=== PATIENT | male | born 1935 | race Caucasian/White ===

== ENCOUNTER 2017-04-12 16:52 | Inpatient (IN) | payer MEDICARE ==
[~2017-04-12] VITALS: Ht 182.8 cm; Wt 79.9 kg
[2017-04-12] VITALS (9 sets, daily range): BP systolic 75–125; BP diastolic 35–56
--- NOTE | ~2017-04-12 | O ---
[place], [place] OPERATIVE NOTE NAME: [facility] [id number] UNIT #: [id number] ROOM: 509 DOCTOR: BONILLA ISAAC MD BIRTHDATE: [birth year] DOS: GASTROENDOSCOPIC REPORT HISTORY OF PRESENT ILLNESS: An 81-year-old who presented with chief complaint of guaiac positivity black tarry stool, undergoing investigation. The patient has been on aspirin by history. PROCEDURE: Today's procedure part of investigation is panendoscopy plus biopsy and photographic series. PREMEDICATION: Versed and Diprivan. SCOPE: Olympus forward-viewing gastroscope Q10 video. REPORT: After putting the patient in the left lateral position and after application of lubricant to the scope, the scope was introduced. Thereafter, under direct visualization, I advanced through the length of the esophagus without difficulty. Esophagus cervicothoracic distally carefully examined. Diffuse esophageal ulceration in the mid esophagus particularly appreciated, photograph was obtained. Hiatal hernia was noticed. Gastric pouch was entered. Gastritis seen, mild degree. Duodenal bulb, second and third part within normal limits. Biopsy from esophageal ulcer was obtained. The patient extubated, tolerated procedure well. IMPRESSION: Diffuse esophageal ulcers as a cause of guaiac positivity. PLAN: Sucralfate 2 grams slurry to be sipped by the patient every 6 hours. Increase Protonix 40 mg IV b.i.d. Follow up CBC, clinical reassessment, diet soft. BONILLA ISAAC MD CM:OPRECORD:OPERATIVE NOTE 1644 04 BONILLA ISAAC MD 04/14/171903 interface
--- NOTE | ~2017-04-12 | CON ---
[place], [place] REPORT OF CONSULTATION NAME: THI GRIDER Sabrina UNIT #: [id number] ROOM: 509 DOCTOR: BONILLA ISAAC MD BIRTHDATE: [birth year] DOS: 04/14/2017 HISTORY OF PRESENT ILLNESS: An 81-year-old patient who presented with black tarry stool, has been concerned and admitted on . His white blood cell was 11, H and H of 14 and 44. His blood work this morning H and H still 12 and 38. His blood cultures were negative. Urine culture has been greater than 100,000 heavy gram-negative cocci. He is guaiac positive. PAST MEDICAL HISTORY: Associated chronic kidney disease, chronic obstructive pulmonary disease, hypertension, diabetes, hyperlipidemia, BPH. PAST SURGICAL HISTORY: Right inguinal hernia. SOCIAL HISTORY: Nonsmoker, nonalcohol consumer. FAMILY HISTORY: Noncontributory. ALLERGIES: To no known medications. MEDICATIONS: List has been reviewed. REVIEW OF SYSTEMS: HEENT: Denies double vision, blurred vision. RESPIRATORY: Denies shortness of breath. CARDIOVASCULAR: Denies chest pain. DIGESTIVE SYSTEM: No hematemesis; however, black tarry stools, repeatedly complaining of. PHYSICAL EXAMINATION: VITAL SIGNS: Stable. HEENT: Head normocephalic, nontraumatic. Mouth and buccal mucosa benign. NECK: Supple, no thyromegaly, no cervical lymphadenopathy. CHEST: Symmetric anatomy, equal expansion. No wheeze, no rhonchi. HEART: Normal sinus rhythm, no gallop, no murmur. ABDOMEN: Soft. No hepato-organomegaly. Bowel sounds present. No pulsatile mass. No rebound tenderness. EXTREMITIES: No cyanosis, no pedal edema. NEUROLOGIC: Alert, oriented to time, place, person. IMPRESSION: Black tarry stool, history of chronic obstructive pulmonary disease, hyperlipidemia, hypertension, diabetes mellitus, benign obstructive hypertrophy, all has been recognized. PLAN AND DISCUSSION: We are going to proceed with panendoscopic assessment in concern about his black tarry stool. His urinary tract infection greater than 100,000 gram-positive cocci is being addressed by primary team. [place], [place] REPORT OF CONSULTATION NAME: THI GRIDER UNIT #: [id number] ROOM: 509 DOCTOR: MARLIN JARAMILLO,BONILLA BIRTHDATE: [birth year] BONILLA ISAAC MD CM:CONSTR:REPORT OF CONSULTATION 1632 04/15/17 0114 interface
--- NOTE | ~2017-04-12 | PR ---
[place], [place] PROGRESS NOTE NAME: THI GRIDER [facility] #: [id number] UNIT #: [id number] ROOM: 509 DOCTOR: DAY RICHARDSON MD BIRTHDATE: [birth year] DOS: 04/14/2017 SUBJECTIVE: The patient in his room, walking. Denies any specific cardiac complaints. No chest pain. No chest pressure. No heaviness. No tightness. The patient was found to have black tarry stools. Denies any abdominal pain. No nausea. No vomiting. No fever. No chills. Maintains good appetite. No weight loss. OBJECTIVE: VITAL SIGNS: Blood pressure 157/67, heart rate 61, respiratory rate of 14, temperature 97.3. NECK: There is good upstroke. No bruit. HEART: S1, S2. No rub. LUNGS: Clear to auscultation. EXTREMITIES: Lower extremities: There is no edema. LABORATORY DATA: White count 7.1, hemoglobin 12.0. Potassium 3.7, creatinine 0.8, GFR more than 60%, glucose 225. Total cholesterol 167, LDL 58, HDL 50. Troponin is normal at 0.023 and 0.02 and 0.015. ASSESSMENT AND PLAN: Initial presentation with questionable episode of syncope, even though patient adamantly denies such episode. There is an element of dementia and confusion, which we take in consideration evaluating overall patient's history. At this stage, going by patient's vital signs and rhythm strips, there appears to be no evidence of any significant cardiac events. The patient's tarry stool has been addressed by Dr. Walter and apparently they will proceed with EGD and colonoscopy and patient is cleared for this procedure from the Cardiology point of view. There was no evidence of any atrial fibrillation. The patient can be discharged home from our end and can be seen as an outpatient within 2-3 months. Any change in symptoms, then a long-term monitoring is device such as a CardioNet. DAY RICHARDSON MD CM:PNTRANS 2 15 DAY RICHARDSON MD 04/16/171915 interface
--- NOTE | ~2017-04-12 | CON ---
[place], [place] REPORT OF CONSULTATION NAME: [facility]ID[facility] [id number] UNIT #: [id number] ROOM: 509 DOCTOR: DYLAN JARAMILLODAY BIRTHDATE: [birth year] DOS: 04/13/2017 REQUESTING PHYSICIAN: Dr. Valle. REASON FOR CONSULTATION: New EKG changes. ASSESSMENT: 1. Current presentation with dizziness and near syncope (the patient adamantly denies passing out). 2. EKG read as in atrial fibrillation consistent with normal sinus rhythm. 3. Abnormal baseline EKG consistent with poor R-wave progression and nonspecific ST-T changes. 4. Chronic kidney disease stage III. 5. Chronic obstructive pulmonary disease. 6. Diabetes. 7. Hypertension. 8. Hyperlipidemia. 9. No reported cardiac complaint. PLAN: 1. Cycle cardiac enzymes. 2. Check echocardiogram results. 3. Enteric coated aspirin. 4. There is no room for beta hailey in view of the patient's baseline bradycardia. 5. I will hold on further cardiac testing in view of patient's elderly and frail status (dementia). 6. Stop Cardura. 7. Consider holding NIA inhibitor at this time with Nephrology consult. HISTORY OF PRESENT ILLNESS: The patient is a pleasant 81-year-old gentleman unknown to our practice, was referred for evaluation of what looks like an abnormal EKG. The initial reading consistent with atrial fibrillation, but patient has been in normal sinus rhythm. Abnormal baseline EKG changes could be chronic. The patient apparently presented to the hospital after getting out of [employer] and getting dizzy and was thought to be like he passed out even though patient completely denies. No reported chest pain, chest pressure, heaviness or tightness. Never had any jaw pain, left arm pain, no back pain. The patient is active, but there is a problem with what looks like an element of dementia, which casts doubt about all his history. Still the patient apparently was found out in passing out prior to his brother bringing him to the hospital. There is no fever, no chills, no night sweats, maintained good appetite, no weight loss. No symptomatic palpitation or any associated dizziness, lightheadedness or near syncope. PAST MEDICAL HISTORY: As detailed in my assessment. SOCIAL HISTORY: The patient denies any current tobacco, alcohol or illicit drug abuse. [place], [place] REPORT OF CONSULTATION NAME: [facility] GRIDER [facility] [id number] UNIT #: [id number] ROOM: 509 DOCTOR: DAY RICHARDSON MD BIRTHDATE: [birth year] FAMILY HISTORY: Not applicable in view of the patient's age. CURRENT MEDICATIONS: Lipitor, vitamin D3, Cardura, insulin, lisinopril, triamcinolone, vitamin E. ALLERGIES: The patient has no known drug allergies. REVIEW OF SYSTEMS: The patient denies any current headache, diplopia, or blurry vision. No fever, no chills, no night sweats. No abdominal pain, no bright red blood per rectum or tarry stools. The patient admits to joint pain, but no muscular pain. No anxiety, no depression. No polyuria, no polydipsia. No skin rash. Review of all other systems has been negative. PHYSICAL EXAMINATION: GENERAL: The patient is alert and oriented x3, quite pleasant. VITAL SIGNS: Blood pressure 127/54, heart rate 61, respiratory rate of 14, temperature 98.9. Extraocular muscles intact. Pupils equal, round, reactive to light. Conjunctivae, no pallor. Throat, no petechiae. NECK: Good upstroke. Unable to appreciate any bruit, no lymphadenopathy, no thyromegaly. HEART: S1, S2 with faint holosystolic murmur in the left upper sternal border. No rub, no sternal heave. CHEST AND BACK: No deformities. LUNGS: Clear to auscultation. Good air movement. No wheezing, rales. ABDOMEN: Soft, nontender, present bowel sounds, no masses, no bruits. LOWER EXTREMITIES: There is no edema with faint distal pulses. NEUROLOGIC: Grossly nonfocal. SKIN: No significant rash. LABORATORY DATA: White count 7.1, hemoglobin 12.0. Potassium 3.6, current creatinine 1.4, BUN 35, calcium 7.9, troponin 0.023 and 0.02. DAY RICHARDSON MD CM:CONSTR:REPORT OF CONSULTATION 1745 04/14/17 0150 interface
[~2017-04-12 16:52] MED LIST: 'zithromax250 MG PO; ADVAIR 250/501 EA INH; ALBUTEROL0.09 MG/A1 INH; ALBUTEROL0.09 MG/A2 INH; CARDURA1 M1 PO; DOXAZOSIN MESYLA1 MG PO; EYE DROPS; HUMALOG100 U/ML SC; HUMULIN N100 U/ML SC; HUMULIN R100 U/ML SC; HYDR25T PO; HYDROCODONE BIT1 T11 PO; INNOPRAN PO; INSULIN SYRING1 EAC1 MC; LANTUS100 U/ML SC; LIDOCREAM5 GM TP; LIPITOR20 MG PO; LIPITOR40 MG PO; LISINOPRIL20 MG PO; MUCINEX ER600 MG PO; MYCOLOG CREAM 115 GM T; NOVOLIN N100 U/ML SC; NOVOLIN R100 U/ML SC; NOVOLIN R100 U/ML SQ; OMNICEF300 MG PO; PREDNICOT20 MG PO; PREDNISONE10 MG PO; TAMSULOSIN HCL0.4 MG PO; TEST STRIPS1 EACH MC; VITAMIN D32000 I1 PO; VITAMIN D32000 UNI1 PO; VITAMIN E400 UNIT PO; Ventolin 02.5 MG/3 M NEB; ZESTORETIC PO; ZITHROMAX500 MG PO; [UNRECOGNIZED DRUG - OTHER] PO; [UNRECOGNIZED DRUG - SUPPLY] DEVI
[2017-04-12 17:44] LABS: BASO % 0.4 % (0.0-1.0); EOS % 0.3 % (1.0-4.0); HEMATOCRIT 44.4 % (42.0-52.0); HEMOGLOBIN 14.9 g/dl (14.0-18.0); IG # 0.1 10*3/uL (0.0-0.1); LYMPH # 1.2 10*3/uL (1.3-4.4); LYMPH % 10.4 % (27.0-41.0); MEAN CELL VOLUME 90.6 fl (80.0-94.0); MEAN CORPUSCULAR HGB 30.4 pg (27.0-31.0); MEAN CORPUSCULAR HGB CONC 33.6 g/dl (33.0-37.0); MEAN PLATELET VOLUME 10.7 fl (9.6-12.3); MONO # 0.9 10*3/uL (0.1-1.0); MONO % 7.7 % (3.0-9.0); NEUT # 9.1 10*3/uL (2.3-7.9); NEUT % 80.4 % (47.0-73.0); PLATELET COUNT AUTOMATED 231 10*3/uL (130-400); RED CELL DISTRI WIDTH 12.6 % (0-14.5); WHITE BLOOD COUNT 11.2 10*3/uL (4.8-10.8)
[2017-04-12 18:10] LABS: ALBUMIN 3.3 gm/dl (3.1-4.5); ALKALINE PHOSPHATASE 174 U/L (45-117); BILIRUBIN, TOTAL 0.7 mg/dl (0.2-1.0); BUN 41 mg/dl (7-24); C-REACTIVE PROTEIN 2.66 MG/DL (0-0.3); CARBON DIOXIDE 23 mmol/L (21-32); CHLORIDE 92 mmol/L (98-107); CKMB 2.2 ng/ml (0.5-3.6); CPK 92 U/L (39-308); EST GLOM FILT AFRICAN AMERICAN 27 ml/min; GLUCOSE 173 mg/dL (65-99); MAGNESIUM 2.5 mg/dL (1.5-2.1); POTASSIUM 3.8 mmol/L (3.5-5.1); SGOT/AST 15 IU/L (3-35); SGPT/ALT 27 U/L (12-78); SODIUM 137 mmol/L (136-145); TOTAL PROTEIN 7.2 gm/dL (6.4-8.2)
[2017-04-12 18:12] LABS: TROPONIN I < 0.015 ng/ml (<0.045)
[2017-04-12 19:37] LABS: BILIRUBIN NEGATIVE (NEGATIVE); BLOOD TRACE-INTACT (NEGATIVE); CLARITY CLEAR (CLEAR); COLOR YELLOW (YELLOW); GLUCOSE 3+ (NEGATIVE); KETONE 1+ (NEGATIVE); LEUKO ESTERASE TRACE (NEGATIVE); NITRITE NEGATIVE (NEGATIVE); PROTEIN NEGATIVE (NEGATIVE); SPECIFIC GRAVITY <= 1.005 (1.005-1.030); UROBILINOGEN 0.2 E.U./dl (0.2-1.0)
[2017-04-12 19:38] LABS: LA>2 REFLEX 2 HR DRAW NOW
[2017-04-12 19:52] LABS: BACTERIA TRACE; RBC 0-2 rbc/hpf (0-2); URINE REFLEX COMMENT YES (NO)
[2017-04-12 20:13] LABS: LA>2 RFLX FOLLOW UP AT 2 HRS 4.1 mmol/L (0.4-2.0)
[2017-04-12 22:00] LABS: LA>2 REFLEX 4 HR DRAW NOW
[2017-04-13] VITALS: BP 122/45
[2017-04-13 04:00] VITALS: BP 109/42
[2017-04-13 05:59] LABS: BASO % 0.1 % (0.0-1.0); EOS # 0.1 10*3/uL (0.0-0.4); LYMPH # 1.2 10*3/uL (1.3-4.4); LYMPH % 16.9 % (27.0-41.0); MEAN CELL VOLUME 90.2 fl (80.0-94.0); MEAN CORPUSCULAR HGB 30.8 pg (27.0-31.0); MEAN CORPUSCULAR HGB CONC 34.2 g/dl (33.0-37.0); MEAN PLATELET VOLUME 10.3 fl (9.6-12.3); MONO # 0.6 10*3/uL (0.1-1.0); MONO % 7.8 % (3.0-9.0); NEUT # 5.2 10*3/uL (2.3-7.9); NEUT % 73.8 % (47.0-73.0); RED BLOOD COUNT 3.89 10*6/uL (4.50-5.90); RED CELL DISTRI WIDTH 12.6 % (0-14.5); WHITE BLOOD COUNT 7.1 10*3/uL (4.8-10.8)
[2017-04-13 06:12] LABS: HEMATOCRIT 35.1 % (42.0-52.0); PLATELET COUNT AUTOMATED 157 10*3/uL (130-400)
[2017-04-13 06:26] LABS: POTASSIUM 3.6 mmol/L (3.5-5.1)
[2017-04-13 08:00] VITALS: BP 114/53
[2017-04-13 09:20] LABS: BILIRUBIN NEGATIVE (NEGATIVE); BLOOD TRACE-INTACT (NEGATIVE); CLARITY CLEAR (CLEAR); COLOR YELLOW (YELLOW); GLUCOSE 3+ (NEGATIVE); KETONE NEGATIVE (NEGATIVE); LEUKO ESTERASE NEGATIVE (NEGATIVE); NITRITE NEGATIVE (NEGATIVE); PH 5.5 (5.0-9.0); PROTEIN TRACE (NEGATIVE); UROBILINOGEN 0.2 E.U./dl (0.2-1.0)
[2017-04-13 09:25] LABS: BACTERIA TRACE
[2017-04-13 09:26] LABS: URINE REFLEX COMMENT NO (NO)
[2017-04-13 12:00] VITALS: BP 123/56
[2017-04-13 16:00] VITALS: BP 127/54
[2017-04-13 20:00] VITALS: BP 135/57
[2017-04-14] VITALS (8 sets, daily range): BP systolic 123–150; BP diastolic 40–65
[2017-04-14 07:35] LABS: BASO % 0.4 % (0.0-1.0); EOS # 0.1 10*3/uL (0.0-0.4); HEMATOCRIT 38.4 % (42.0-52.0); HEMOGLOBIN 12.7 g/dl (14.0-18.0); LYMPH # 1.1 10*3/uL (1.3-4.4); LYMPH % 20.1 % (27.0-41.0); MEAN CORPUSCULAR HGB 30.8 pg (27.0-31.0); MEAN CORPUSCULAR HGB CONC 33.1 g/dl (33.0-37.0); MONO # 0.4 10*3/uL (0.1-1.0); MONO % 6.5 % (3.0-9.0); NEUT # 3.8 10*3/uL (2.3-7.9); NEUT % 70.6 % (47.0-73.0); PLATELET COUNT AUTOMATED 145 10*3/uL (130-400); RED BLOOD COUNT 4.13 10*6/uL (4.50-5.90); RED CELL DISTRI WIDTH 12.8 % (0-14.5); WHITE BLOOD COUNT 5.4 10*3/uL (4.8-10.8)
[2017-04-14 07:48] LABS: CHOLESTEROL 167 mg/dL (<200); HDL CHOLESTEROL 50 mg/dl (40-60); LDL CHOLESTEROL 58 mg/dL (9-159); TRIGLYCERIDES 297 mg/dl (<150); VLDL CHOLESTEROL 59 mg/dL (6-40)
[2017-04-14 08:04] LABS: CARBON DIOXIDE 24 mmol/L (21-32); CHLORIDE 106 mmol/L (98-107); EST GLOM FILT AFRICAN AMERICAN > 60 ml/min; GLUCOSE 225 mg/dL (65-99); POTASSIUM 3.7 mmol/L (3.5-5.1); SODIUM 141 mmol/L (136-145)
[2017-04-14 08:08] LABS: BUN 22 mg/dl (7-24)
[2017-04-15] VITALS: BP 126/61
[2017-04-15 06:46] LABS: BASO % 0.4 % (0.0-1.0); EOS # 0.1 10*3/uL (0.0-0.4); EOS % 2.5 % (1.0-4.0); HEMATOCRIT 40.9 % (42.0-52.0); HEMOGLOBIN 13.6 g/dl (14.0-18.0); LYMPH # 1.3 10*3/uL (1.3-4.4); LYMPH % 24.1 % (27.0-41.0); MEAN CELL VOLUME 92.3 fl (80.0-94.0); MEAN CORPUSCULAR HGB 30.7 pg (27.0-31.0); MEAN CORPUSCULAR HGB CONC 33.3 g/dl (33.0-37.0); MEAN PLATELET VOLUME 10.8 fl (9.6-12.3); MONO # 0.4 10*3/uL (0.1-1.0); NEUT # 3.4 10*3/uL (2.3-7.9); NEUT % 64.4 % (47.0-73.0); PLATELET COUNT AUTOMATED 160 10*3/uL (130-400); RED BLOOD COUNT 4.43 10*6/uL (4.50-5.90); RED CELL DISTRI WIDTH 12.7 % (0-14.5); WHITE BLOOD COUNT 5.3 10*3/uL (4.8-10.8)
[2017-04-15 06:57] LABS: BUN 18 mg/dl (7-24); CARBON DIOXIDE 21 mmol/L (21-32); CHLORIDE 107 mmol/L (98-107); EST GLOM FILT AFRICAN AMERICAN > 60 ml/min; GLUCOSE 246 mg/dL (65-99); POTASSIUM 3.9 mmol/L (3.5-5.1); SODIUM 141 mmol/L (136-145)
[2017-04-15 08:00] VITALS: BP 157/67
[2017-04-15 12:00] VITALS: BP 140/50
[2017-04-15] MEDS ORDERED: Carafate1 GM/10 ML PO (15:25)
[2017-04-15 16:00] VITALS: BP 120/52
[2017-04-15 20:00] VITALS: BP 126/53
[2017-04-16] VITALS: BP 138/58
[2017-04-16 08:00] VITALS: BP 177/56
[2017-04-16] MEDS ORDERED: PROTONIX40 MG PO (09:09)
[2017-04-16 12:00] VITALS: BP 149/52
[2017-04-16] MEDS ORDERED: DOXYCYCLINE100 M3 PO (12:47)
== END 2017-04-16 13:02 | disposition home or self-care (01) | DRG 380 ==
LOC: ED 16:52 → ICCU 18:39 → EDHOLD 18:39 → ICCU 19:43 → 5E 04-13 18:04
PROVIDERS: Emergency Medicine; Hospitalist; Internal Medicine; Internal Medicine Cardiovascular Disease
PROC: 0DB58ZX Excision of Esophagus, Via Natural or Artificial Opening Endoscopic, Diagnostic (ICD-10-PCS; principal; 2017-04-14)
DX: K22.11 Ulcer of esophagus with bleeding (principal); N17.0 Acute kidney failure with tubular necrosis; G93.41 Metabolic encephalopathy; I95.9 Hypotension, unspecified; E87.2 Acidosis; E11.22 Type 2 diabetes mellitus with diabetic chronic kidney disease; E11.65 Type 2 diabetes mellitus with hyperglycemia; R00.1 Bradycardia, unspecified; I48.91 Unspecified atrial fibrillation; F03.90 Unspecified dementia, unspecified severity, without behavioral disturbance, psychotic disturbance, mood disturbance, and anxiety; E86.0 Dehydration; R82.4 Acetonuria; J44.9 Chronic obstructive pulmonary disease, unspecified; E78.5 Hyperlipidemia, unspecified; N40.0 Benign prostatic hyperplasia without lower urinary tract symptoms; K29.70 Gastritis, unspecified, without bleeding; I12.9 Hypertensive chronic kidney disease with stage 1 through stage 4 chronic kidney disease, or unspecified chronic kidney disease; N18.3 Chronic kidney disease, stage 3 (moderate); K20.9 Esophagitis, unspecified; Z84.89 Family history of other specified conditions; Z79.4 Long term (current) use of insulin; Z79.899 Other long term (current) drug therapy

== ENCOUNTER 2017-04-24 13:43 | Emergency (ER) | payer MEDICARE ==
[~2017-04-24] VITALS: Ht 182.8 cm; Wt 86.2 kg
[~2017-04-24 13:43] MED LIST changes: +Carafate1 GM/10 ML PO; +DOXYCYCLINE100 M3 PO; +PROTONIX40 MG PO
[2017-04-24 14:57] LABS: BASO % 0.2 % (0.0-1.0); EOS % 0.4 % (1.0-4.0); HEMOGLOBIN 11.6 g/dl (14.0-18.0); LYMPH # 0.6 10*3/uL (1.3-4.4); LYMPH % 6.5 % (27.0-41.0); MEAN CELL VOLUME 92.6 fl (80.0-94.0); MEAN CORPUSCULAR HGB 30.7 pg (27.0-31.0); MEAN CORPUSCULAR HGB CONC 33.1 g/dl (33.0-37.0); MEAN PLATELET VOLUME 10.3 fl (9.6-12.3); MONO # 0.7 10*3/uL (0.1-1.0); NEUT # 7.1 10*3/uL (2.3-7.9); NEUT % 84.5 % (47.0-73.0); PLATELET COUNT AUTOMATED 214 10*3/uL (130-400); RED BLOOD COUNT 3.78 10*6/uL (4.50-5.90); RED CELL DISTRI WIDTH 13.4 % (0-14.5); WHITE BLOOD COUNT 8.4 10*3/uL (4.8-10.8)
[2017-04-24 15:11] LABS: BUN 22 mg/dl (7-24); CARBON DIOXIDE 28 mmol/L (21-32); CHLORIDE 104 mmol/L (98-107); EST GLOM FILT AFRICAN AMERICAN > 60 ml/min; GLUCOSE 132 mg/dL (65-99); POTASSIUM 3.3 mmol/L (3.5-5.1); SODIUM 141 mmol/L (136-145)
[2017-04-24 16:53] LABS: LA>2 REFLEX 2 HR DRAW NOW
[2017-04-24] MEDS ORDERED: BACTRIM DS 8001 TA1 PO (16:57)
[2017-04-24] MEDS ORDERED: KEFLEX500 M1 PO (16:57)
== END 2017-04-24 17:13 | disposition left against medical advice (07) ==
LOC: ED 13:43
PROVIDERS: Emergency Medicine
DX: L03.116 Cellulitis of left lower limb (principal); I12.9 Hypertensive chronic kidney disease with stage 1 through stage 4 chronic kidney disease, or unspecified chronic kidney disease; E11.22 Type 2 diabetes mellitus with diabetic chronic kidney disease; N18.3 Chronic kidney disease, stage 3 (moderate); E11.621 Type 2 diabetes mellitus with foot ulcer; E78.5 Hyperlipidemia, unspecified; J44.9 Chronic obstructive pulmonary disease, unspecified; F03.90 Unspecified dementia, unspecified severity, without behavioral disturbance, psychotic disturbance, mood disturbance, and anxiety; Z79.899 Other long term (current) drug therapy; Z79.4 Long term (current) use of insulin

== ENCOUNTER 2017-07-04 14:55 | Emergency (ER) | payer MEDICARE ==
[~2017-07-04] VITALS: Wt 77.1 kg
[~2017-07-04 14:55] MED LIST changes: +BACTRIM DS 8001 TA1 PO; +KEFLEX500 M1 PO
[2017-07-04 15:29] LABS: BASO % 0.3 % (0.0-1.0); EOS % 0.4 % (1.0-4.0); HEMATOCRIT 37.2 % (42.0-52.0); HEMOGLOBIN 11.9 g/dl (14.0-18.0); LYMPH # 0.6 10*3/uL (1.3-4.4); LYMPH % 8.7 % (27.0-41.0); MEAN CELL VOLUME 93.7 fl (80.0-94.0); MEAN PLATELET VOLUME 10.4 fl (9.6-12.3); MONO # 0.4 10*3/uL (0.1-1.0); MONO % 5.3 % (3.0-9.0); NEUT % 84.9 % (47.0-73.0); PLATELET COUNT AUTOMATED 194 10*3/uL (130-400); RED BLOOD COUNT 3.97 10*6/uL (4.50-5.90); RED CELL DISTRI WIDTH 13.4 % (0-14.5); WHITE BLOOD COUNT 7.1 10*3/uL (4.8-10.8)
[2017-07-04 15:40] LABS: BILIRUBIN NEGATIVE (NEGATIVE); BLOOD NEGATIVE (NEGATIVE); CLARITY SL CLOUDY (CLEAR); COLOR YELLOW (YELLOW); GLUCOSE NEGATIVE (NEGATIVE); KETONE NEGATIVE (NEGATIVE); LEUKO ESTERASE TRACE (NEGATIVE); NITRITE NEGATIVE (NEGATIVE); SPECIFIC GRAVITY 1.025 (1.005-1.030); UROBILINOGEN 0.2 E.U./dl (0.2-1.0)
[2017-07-04 15:58] LABS: BACTERIA 2+; RBC 0-2 rbc/hpf (0-2)
[2017-07-04 16:03] LABS: ALKALINE PHOSPHATASE 129 U/L (45-117); BUN 20 mg/dl (7-24); CHLORIDE 107 mmol/L (98-107); CREATININE 0.95 mg/dL (0.70-1.30); POTASSIUM 3.4 mmol/L (3.5-5.1); SGOT/AST 12 IU/L (3-35); SGPT/ALT 18 U/L (12-78); SODIUM 143 mmol/L (136-145); TOTAL PROTEIN 6.3 gm/dL (6.4-8.2)
== END 2017-07-04 17:09 | disposition left against medical advice (07) ==
LOC: ED 14:55
PROVIDERS: Family Medicine Adult Medicine
DX: E16.2 Hypoglycemia, unspecified (principal); I12.9 Hypertensive chronic kidney disease with stage 1 through stage 4 chronic kidney disease, or unspecified chronic kidney disease; E11.22 Type 2 diabetes mellitus with diabetic chronic kidney disease; N18.3 Chronic kidney disease, stage 3 (moderate); J44.9 Chronic obstructive pulmonary disease, unspecified; E78.5 Hyperlipidemia, unspecified; Z79.899 Other long term (current) drug therapy

== ENCOUNTER 2017-07-19 10:57 | Inpatient (IN) | payer MEDICARE ==
[~2017-07-19] VITALS: Ht 182.9 cm; Wt 86.3 kg
[2017-07-19 11:16] VITALS: BP 158/74
[2017-07-19 11:43] LABS: BASO % 0.4 % (0.0-1.0); EOS % 0.5 % (1.0-4.0); HEMATOCRIT 42.8 % (42.0-52.0); HEMOGLOBIN 13.8 g/dl (14.0-18.0); LYMPH # 1.1 10*3/uL (1.3-4.4); LYMPH % 14.6 % (27.0-41.0); MEAN CELL VOLUME 93.9 fl (80.0-94.0); MEAN CORPUSCULAR HGB 30.3 pg (27.0-31.0); MEAN CORPUSCULAR HGB CONC 32.2 g/dl (33.0-37.0); MEAN PLATELET VOLUME 10.2 fl (9.6-12.3); MONO # 0.5 10*3/uL (0.1-1.0); MONO % 5.9 % (3.0-9.0); NEUT % 78.1 % (47.0-73.0); PLATELET COUNT AUTOMATED 209 10*3/uL (130-400); RED BLOOD COUNT 4.56 10*6/uL (4.50-5.90); RED CELL DISTRI WIDTH 13.2 % (0-14.5); WHITE BLOOD COUNT 7.7 10*3/uL (4.8-10.8)
[2017-07-19 11:52] LABS: ACT PARTIAL THROMBO TIME 23.9 SECONDS (20.8-31.5)
[2017-07-19 12:00] VITALS: BP 139/56
[2017-07-19 12:00] LABS: ALBUMIN 3.3 gm/dl (3.1-4.5); ALKALINE PHOSPHATASE 143 U/L (45-117); BUN 26 mg/dl (7-24); CHLORIDE 98 mmol/L (98-107); CKMB 1.4 ng/ml (0.5-3.6); CPK 81 U/L (39-308); CREATININE 1.37 mg/dL (0.70-1.30); LIPASE 109 U/L (73-393); MAGNESIUM 1.8 mg/dL (1.5-2.1); POTASSIUM 4.9 mmol/L (3.5-5.1); SGOT/AST 13 IU/L (3-35); SGPT/ALT 16 U/L (12-78); SODIUM 134 mmol/L (136-145); TOTAL PROTEIN 6.7 gm/dL (6.4-8.2)
[2017-07-19 12:05] LABS: TROPONIN I < 0.015 ng/ml (<0.045)
[2017-07-19 12:11] LABS: BILIRUBIN NEGATIVE (NEGATIVE); BLOOD 3+ (NEGATIVE); CLARITY CLEAR (CLEAR); COLOR YELLOW (YELLOW); GLUCOSE 3+ (NEGATIVE); KETONE 2+ (NEGATIVE); LEUKO ESTERASE NEGATIVE (NEGATIVE); NITRITE NEGATIVE (NEGATIVE); SPECIFIC GRAVITY <= 1.005 (1.005-1.030); UROBILINOGEN 0.2 E.U./dl (0.2-1.0)
[2017-07-19 12:17] LABS: RBC 31-40 rbc/hpf (0-2)
[2017-07-19 14:15] VITALS: BP 137/97; BP 138/96
--- NOTE | 2017-07-19 14:15 | NUR ---
A 81, admitted to , under the services of SCHUYLER Lock DO with a diagnosis of cellulitis. Chief complaint is blood in urine. Patient arrived via stretcher from ER. Monitor applied. Initial assessment completed. Vital signs taken and recorded. SCHUYLER LOCK DO notified of admission to the unit. Orders received. See assessment for past medical history, medications and allergies. Patient and/or family oriented to unit. [facility] visitation policy reviewed. Clothing/patient valuable form completed. LIA DE LEON
--- NOTE | 2017-07-19 14:26 | NUR ---
TOLD OF CRITICAL LACTIC ACID RESULT.
[2017-07-19 20:00] VITALS: BP 137/97
[2017-07-20] VITALS: BP 137/97; BP 148/51
[2017-07-20 04:00] VITALS: BP 1485/60
[2017-07-20 07:15] LABS: BASO % 0.4 % (0.0-1.0); EOS # 0.1 10*3/uL (0.0-0.4); EOS % 1.2 % (1.0-4.0); HEMATOCRIT 40.4 % (42.0-52.0); HEMOGLOBIN 13.2 g/dl (14.0-18.0); MEAN CELL VOLUME 94.6 fl (80.0-94.0); MEAN CORPUSCULAR HGB 30.9 pg (27.0-31.0); MEAN CORPUSCULAR HGB CONC 32.7 g/dl (33.0-37.0); MEAN PLATELET VOLUME 10.1 fl (9.6-12.3); MONO # 0.6 10*3/uL (0.1-1.0); MONO % 8.4 % (3.0-9.0); NEUT # 5.5 10*3/uL (2.3-7.9); NEUT % 75.5 % (47.0-73.0); PLATELET COUNT AUTOMATED 189 10*3/uL (130-400); RED BLOOD COUNT 4.27 10*6/uL (4.50-5.90); RED CELL DISTRI WIDTH 13.3 % (0-14.5); WHITE BLOOD COUNT 7.4 10*3/uL (4.8-10.8)
[2017-07-20 07:52] LABS: ALKALINE PHOSPHATASE 131 U/L (45-117); BUN 22 mg/dl (7-24); CHLORIDE 107 mmol/L (98-107); CHOLESTEROL 180 mg/dL (<200); CREATININE 0.93 mg/dL (0.70-1.30); FREE T4 1.02 ng/dl (0.76-1.46); HDL CHOLESTEROL 63 mg/dl (40-60); LDL CHOLESTEROL 83 mg/dL (9-159); MAGNESIUM 1.9 mg/dL (1.5-2.1); PHOSPHOROUS 3.5 mg/dL (2.5-4.9); POTASSIUM 4.1 mmol/L (3.5-5.1); SGOT/AST 14 IU/L (3-35); SGPT/ALT 15 U/L (12-78); SODIUM 142 mmol/L (136-145); TOTAL PROTEIN 6.3 gm/dL (6.4-8.2); TRIGLYCERIDES 170 mg/dl (<150); VLDL CHOLESTEROL 34 mg/dL (6-40)
[2017-07-20 07:53] LABS: ACT PARTIAL THROMBO TIME 24.1 SECONDS (20.8-31.5)
[2017-07-20 08:00] VITALS: BP 154/62
[2017-07-20 08:02] LABS: VITAMIN D, 25-HYDROXY 18.9 ng/mL (30-100)
--- NOTE | 2017-07-20 09:00 | NUR ---
Paralegals in to talk to patient. Patient states lives at home with alone. There are few steps in the home. Physician: none Pharmacy: [facility] [place] health services: none Patient's level of ADLs: INDEPENDENT Patient has working utilities: all working DME: crutches, walker and glucometer Follow-up physician's appointment after d/c: will be made by hosptialist nurse director upon discharge Does patient want to access PORTAL?: no Discharge plan discussed with patient, patient states he lives at home alone, also states he gets around fine, has a doctor in [place] that he sees occasionally, discussed with patient a discharge plan and he stated he would be going home, patient has a wound to his right lower leg, also discussed the care of his leg and asked if he was able to change the dressings, patient stated that he wasn't going to need dressing when he was discharged discussed with him VNA and he stated he didn't need anything, case management will follow. VICKI HERNANDEZ
--- NOTE | 2017-07-20 11:41 | NUR ---
PT REFUSING FLU VACCINE
[2017-07-20 12:00] VITALS: BP 138/53
--- NOTE | 2017-07-20 14:43 | NUR ---
Nutritional Support Services Note: Discussing with pt diabetes and better control over his BS. Pt refuses to be on a diabetic diet. He complained that he didn't get enough eggs. Diet changed to regular per Dr. zurita. Receives Boost po TID with meals. Wound noted to right lower leg. No other nutrition intervention needed at this time. Will follow. Catherine Green
--- NOTE | 2017-07-20 14:56 | NUR ---
WOUND TO RIGHT LEG ASSESSED, SKIN TEAR (TRAUMATIC) MEASURING [id number] WOUND BED IN RED WITH GRANULATION PRESENT AND SCANT AMOUNT OF CLEAR DRAINAGE, NO ODOR NOTED . PHOTOS OBTAINED WITH PT'S CONSENT. WOUND CLEANSED WITH NORMAL SALINE AND DRESSED PER ORDER. PT TOLERATED WELL
[2017-07-20 16:00] VITALS: BP 138/48
--- NOTE | 2017-07-20 16:50 | NUR ---
NOTIFIED OF GLUCOSE LEVEL
--- NOTE | 2017-07-20 17:54 | NUR ---
BS RECHECKED, 431. NOTIFIED NEW ORDER FOR 22UNITS NOVOLOG STAT
[2017-07-20 20:00] VITALS: BP 146/59
[2017-07-21] VITALS: BP 122/58
[2017-07-21 06:57] LABS: BASO % 0.5 % (0.0-1.0); EOS # 0.1 10*3/uL (0.0-0.4); EOS % 2.4 % (1.0-4.0); HEMATOCRIT 37.4 % (42.0-52.0); HEMOGLOBIN 11.8 g/dl (14.0-18.0); LYMPH # 1.3 10*3/uL (1.3-4.4); LYMPH % 21.3 % (27.0-41.0); MEAN CELL VOLUME 94.2 fl (80.0-94.0); MEAN CORPUSCULAR HGB 29.7 pg (27.0-31.0); MEAN CORPUSCULAR HGB CONC 31.6 g/dl (33.0-37.0); MEAN PLATELET VOLUME 10.3 fl (9.6-12.3); MONO # 0.5 10*3/uL (0.1-1.0); MONO % 8.2 % (3.0-9.0); NEUT % 67.3 % (47.0-73.0); PLATELET COUNT AUTOMATED 177 10*3/uL (130-400); RED BLOOD COUNT 3.97 10*6/uL (4.50-5.90); RED CELL DISTRI WIDTH 13.2 % (0-14.5); WHITE BLOOD COUNT 5.9 10*3/uL (4.8-10.8)
[2017-07-21 07:10] LABS: BUN 24 mg/dl (7-24); CHLORIDE 109 mmol/L (98-107); CREATININE 0.92 mg/dL (0.70-1.30); POTASSIUM 4.1 mmol/L (3.5-5.1); SODIUM 141 mmol/L (136-145)
[2017-07-21 08:00] VITALS: BP 124/54
--- NOTE | 2017-07-21 09:00 | NUR ---
case management visits with patient, patient denies any home needs
--- NOTE | 2017-07-21 09:01 | NUR ---
SPOKE WITH JUAN FROM THE WOUND CARE CENTER AND SCHEDULED APPOINTMENT FOR WEDNESDAY THE AT 1030.
[2017-07-21] MEDS ORDERED: NORCO 5/325 PO (10:57)
[2017-07-21 12:00] VITALS: BP 136/62
--- NOTE | 2017-07-21 14:31 | NUR ---
MARNITHI Bennett [id number] Please refer to the physician's history and physical for past medical history, comorbid conditions, and allergies. Diagnosis: CELLULITIS OF RIGHT LOWER EXTREMITY, ARF, Tommie Score: 18,AT RISK WOUND DESCRIPTIONS: Location of the wound: RLE Thickness: Full Size: 11.0cm x 3.2cm x 0.1cm Tunneling: none Undermining: none Sinus Tract: none Presence of Exudate: serosanguineous Amount: Light Color: Yellow Odor: None Periwound Skin Appearance: Normal Wound edges: approximated Pain (associated with wound): none How does patient state this happened? pt unsure how this happened Surface the patient is resting on: Isoflex SKIN PREVENTION RECOMMENDATION: 1. Pressure redistribution support surface as appropriate 2. Elevate heels 3. Remove boots/TEDS every shift and reapply 4. Head of bed 30 degrees as tolerated 5. Assess nutrition and hydration 6. Manage moisture 7. Avoid the use of containment devices while in bed 8. Use absorptive products on surfaces limit layers of linens on bed 9. Turn and reposition every 1-2 hours in bed and every 1 hour in chair as tolerated 10. Weight shifts every 15 minutes while up in chair 11. Offloading with pillows or device to keep heels elevated off bed 12. Monitor skin at least every shift 13. Inspect under medical devices twice a day WOUND TREATMENT RECOMMENDATIONS: Cleanse RLE with NSS and apply sureprep to the surrounding wound bed versatel to wound bed and therahoney to wound bed. Patient wants to follow up in the wound care center appointment made for july 23 at 10:30am.
--- NOTE | 2017-07-21 15:29 | NUR ---
PT DISCHARGED TO HOME. PAPERWORK AND FOLLOW UP TO WOUND CARE REVIEWED. HEP[LOCK DISCONTINUED. PT TO GET DRESSED AND BE TRANSPORTED TO PRIVATE CAR VIA WHEELCHAIR.
--- NOTE | 2017-07-22 07:48 | NUR ---
Received order for home health via [facility]EDS AT THE [facility]. Faxed order and cincals to kenny for referral/
== END 2017-07-21 17:36 | disposition home health service (06) | DRG 602 ==
LOC: ED 10:57 → EDHOLD 13:13 → 5E 13:13
PROVIDERS: Emergency Medicine; Internal Medicine; ADMIT Internal Medicine
DX: L03.115 Cellulitis of right lower limb (principal); N17.0 Acute kidney failure with tubular necrosis; E87.2 Acidosis; E87.1 Hypo-osmolality and hyponatremia; K92.1 Melena; E86.0 Dehydration; D50.9 Iron deficiency anemia, unspecified; N40.0 Benign prostatic hyperplasia without lower urinary tract symptoms; J44.9 Chronic obstructive pulmonary disease, unspecified; I12.9 Hypertensive chronic kidney disease with stage 1 through stage 4 chronic kidney disease, or unspecified chronic kidney disease; E11.22 Type 2 diabetes mellitus with diabetic chronic kidney disease; N18.3 Chronic kidney disease, stage 3 (moderate); R31.9 Hematuria, unspecified; E11.65 Type 2 diabetes mellitus with hyperglycemia; W18.39XA Other fall on same level, initial encounter; Y93.89 Activity, other specified; Y99.8 Other external cause status; Y92.009 Unspecified place in unspecified non-institutional (private) residence as the place of occurrence of the external cause; Z79.4 Long term (current) use of insulin; Z79.899 Other long term (current) drug therapy; Z98.49 Cataract extraction status, unspecified eye; Z72.89 Other problems related to lifestyle

== ENCOUNTER → 2017-07-23 | Outpatient (CLI) | payer MEDICARE ==
[~2017-07-23] MED LIST changes: +NORCO 5/325 PO
== END | disposition home or self-care (01) ==
LOC: WOUNDCARE 02:12
DX: E11.622 Type 2 diabetes mellitus with other skin ulcer (principal); L97.211 Non-pressure chronic ulcer of right calf limited to breakdown of skin; I70.213 Atherosclerosis of native arteries of extremities with intermittent claudication, bilateral legs; J44.9 Chronic obstructive pulmonary disease, unspecified; F03.90 Unspecified dementia, unspecified severity, without behavioral disturbance, psychotic disturbance, mood disturbance, and anxiety; E78.5 Hyperlipidemia, unspecified; E11.22 Type 2 diabetes mellitus with diabetic chronic kidney disease; I12.9 Hypertensive chronic kidney disease with stage 1 through stage 4 chronic kidney disease, or unspecified chronic kidney disease; N18.3 Chronic kidney disease, stage 3 (moderate)

== ENCOUNTER 2017-07-25 00:31 | Inpatient (IN) | payer MEDICARE ==
[~2017-07-25] VITALS: Ht 182.8 cm; Wt 89.1 kg
--- NOTE | ~2017-07-25 | CON ---
[place], [place] REPORT OF CONSULTATION NAME: THI GRIDER UNIT #: [id number] ROOM: 512 DOCTOR: GERBER ORELLANA MD BIRTHDATE: [birth year] DOS: 07/25/2017 CHIEF COMPLAINT: "I guess my blood sugar was low." HISTORY OF PRESENT ILLNESS: This is an 81-year-old white male who was picked up by the [place] [employer] because he was driving erratically and driving the wrong way down the road. EMS was called as he complained of shortness of breath. At the time that he was initially brought in to the EMS vehicle, he was alert and oriented x 2. Upon arriving to the Emergency Room at [facility], they note that he was alert and oriented x 3. The data in the chart indicates that he does have a history of dementia, but repeatedly it is noted that he seemed to be fairly oriented following being picked up and triaged. This morning as I interview him, he is aware that he is in the hospital, that he came here yesterday being brought in by EMS because of low blood sugar. He was able to give me his street address and give me other details regarding his admission here. PAST MEDICAL HISTORY: Remarkable for acute renal failure, benign prostatic hypertrophy, cellulitis, chronic kidney disease stage 3, COPD, diabetes, hypertension, hyperlipidemia, anemia and dementia. MENTAL STATUS: He is alert and oriented x 3. Mood does seem to be fairly euthymic. Affect appropriate. There were no symptoms of hypomania or sola. There were no overt auditory or visual hallucinations. No delusions or paranoia. Short-term memory may have mild gaps, but overall, he is fairly well intact. DIAGNOSIS: Acute delirium. PLAN: At this point, I see no reason for any intervention. Should he sundown or should his symptoms reoccur, please reconsult me in the future. GERBER ORELLANA MD CM:CONSTR:REPORT OF CONSULTATION 1022 07/25/17 1315 interface
--- NOTE | ~2017-07-25 | EKG ---
[place], [place] ELECTROCARDIOGRAM REPORT NAME: THI GRIDER UNIT #: [id number] ROOM: [facility] DOCTOR: CURT JARAMILLO,ISRRAEL BIRTHDATE: [birth year] DOS: 07/25/2017 TIME: 1:12 a.m. IMPRESSION: 1. Sinus rhythm. 2. Left axis deviation. 3. 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 ISRRAEL ELIAS MD CM:EKGRPT:ELECTROCARDIOGRAM REPORT 1240 1254 ISRRAEL ELIAS MD
[2017-07-25 00:35] VITALS: BP 131/48
--- NOTE | 2017-07-25 01:32 | NUR ---
VISITING WITH FAMILY IN ROOM. PT OFFERED SNACK AND INSTRUCTED TO USE URINAL FOR URINE SPECIMIN. PT SLIGHTLY AGITATED.
[2017-07-25 01:33] VITALS: BP 136/61
[2017-07-25 01:38] LABS: BASO % 0.3 % (0.0-1.0); EOS % 0.4 % (1.0-4.0); HEMATOCRIT 38.7 % (42.0-52.0); HEMOGLOBIN 12.9 g/dl (14.0-18.0); LYMPH # 1.4 10*3/uL (1.3-4.4); LYMPH % 17.4 % (27.0-41.0); MEAN CELL VOLUME 91.3 fl (80.0-94.0); MEAN CORPUSCULAR HGB 30.4 pg (27.0-31.0); MEAN CORPUSCULAR HGB CONC 33.3 g/dl (33.0-37.0); MEAN PLATELET VOLUME 9.6 fl (9.6-12.3); MONO # 0.7 10*3/uL (0.1-1.0); NEUT # 5.7 10*3/uL (2.3-7.9); NEUT % 72.8 % (47.0-73.0); PLATELET COUNT AUTOMATED 200 10*3/uL (130-400); RED BLOOD COUNT 4.24 10*6/uL (4.50-5.90); RED CELL DISTRI WIDTH 13.2 % (0-14.5); WHITE BLOOD COUNT 7.9 10*3/uL (4.8-10.8)
[2017-07-25 01:53] LABS: ALBUMIN 3.3 gm/dl (3.1-4.5); ALKALINE PHOSPHATASE 138 U/L (45-117); BUN 28 mg/dl (7-24); CHLORIDE 104 mmol/L (98-107); CREATININE 1.47 mg/dL (0.70-1.30); POTASSIUM 3.8 mmol/L (3.5-5.1); SGOT/AST 28 IU/L (3-35); SGPT/ALT 23 U/L (12-78); SODIUM 141 mmol/L (136-145); TOTAL PROTEIN 6.6 gm/dL (6.4-8.2)
[2017-07-25 01:56] LABS: ACETAMINOPHEN (TYLENOL) < 2.0 ug/ml (10-30); ETHYL ALCOHOL < 3.0 mg/dl (<3)
--- NOTE | 2017-07-25 02:02 | NUR ---
PT ENCOURAGED TO URINATE FOR SPECIMIN. TELLS ME "IN A MINUTE". CONTINUES TO BE AGITATED.
[2017-07-25 02:21] LABS: BILIRUBIN 1+ (NEGATIVE); BLOOD TRACE-INTACT (NEGATIVE); CLARITY CLEAR (CLEAR); COLOR YELLOW (YELLOW); GLUCOSE 2+ (NEGATIVE); KETONE TRACE (NEGATIVE); LEUKO ESTERASE TRACE (NEGATIVE); NITRITE NEGATIVE (NEGATIVE); PH 5.5 (5.0-9.0); SPECIFIC GRAVITY 1.025 (1.005-1.030); UROBILINOGEN 0.2 E.U./dl (0.2-1.0)
[2017-07-25 02:30] LABS: URINE AMPHETAMINES < 1000 (1000ng/ml); URINE BARBITURATES < 200 (200ng/ml); URINE BENZODIAZEPINES < 200 (200ng/ml); URINE CANNABINOIDS (THC) < 50 (50ng/ml); URINE COCAINE < 300 (300ng/ml); URINE METHADONE < 300 (300ng/ml); URINE OPIATES > 300 (300ng/ml)
[2017-07-25 02:34] LABS: URINE PHENCYCLIDINE < 25 (25ng/ml)
[2017-07-25 02:37] LABS: BACTERIA TRACE
--- NOTE | 2017-07-25 02:46 | NUR ---
EATING BOXED LUNCH AND VISITING WITH DAUGHTER AT BEDSIDE.
--- NOTE | 2017-07-25 03:25 | NUR ---
DAUGHTER TO DESK AND STATES "HE DOESN'T WANT TO STAY IN A ROOM UPSTAIRS". DR KINGSTON WILL BE NOTIFIED.
--- NOTE | 2017-07-25 03:30 | NUR ---
PT NOW AGREEABLE TO STAY. ADEMANTLY REFUSING IV OR GOWN PLACEMENT. TELLS ME "I'VE HAD ENOUGH OF THIS BULLSHIT".
[2017-07-25 03:35] VITALS: BP 130/70
--- NOTE | 2017-07-25 04:02 | NUR ---
PT AGAIN REFUSING IV, LAB WORK, MONITORING. TELLS ME "JUST GET ME UPSTAIRS".
[2017-07-25 04:16] VITALS: BP 120/82; BP 146/53
--- NOTE | 2017-07-25 04:16 | NUR ---
CCIAA 81, admitted to 5E, under the services of SCHUYLER Lock DO with a diagnosis of ALTERED MENTAL STATUS. Chief complaint is CONFUSION. Patient arrived via stretcher from ER. Monitor applied. Initial assessment completed. Vital signs taken and recorded. SCHUYLER LOCK DO notified of admission to the unit. Orders received. See assessment for past medical history, medications and allergies. Patient and/or family oriented to unit. [facility] 5E visitation policy, Medication Reconciliation reviewed, Pharmacy varified and physician notified of patients arrival to unit. Clothing/patient valuable form completed. CAESAR GABRIEL
[2017-07-25 08:00] VITALS: BP 160/64
--- NOTE | 2017-07-25 08:42 | NUR ---
PATIENT IS VERY AGITATED. STATES HE WANTS TO LEAVE NOW. STATES HE DONT NEED TO BE HERE AND DIDNT AGREE TO THIS.
--- NOTE | 2017-07-25 08:43 | NUR ---
PATIENT REFUSES CT. STATES HE HAD ONE LAST NIGHT. EDUCATED PATIENT ON THE DIFFERENCE BETWEEN THE PREVIOUS EXAM AND THE NEW ORDER. PATIENT STILL REFUSES CT.
--- NOTE | 2017-07-25 08:44 | NUR ---
PATIENT REFUSES IV FLUIDS. PATIENT STATES HE DONT WANT TO BE ATTACHED TO ANYTHING. EXPLAINED THE IMPORTANCE OF HYDRATION, PATIENT STILL REFUSES.
--- NOTE | 2017-07-25 09:53 | NUR ---
ATTEMPTED TO CALL [facility] FOR DR. ORELLANA CONSULT. LEFT MESSAGE
--- NOTE | 2017-07-25 10:05 | NUR ---
DR. ORELLANA EVALUATED PATIENT. STATES PATIENT ALERT AND ORIENTED AND COMPETENT.
--- NOTE | 2017-07-25 10:25 | NUR ---
MEDICATIONS VERIFIED VIA PHARMACY
--- NOTE | 2017-07-25 10:52 | NUR ---
DR. OMALLEY IN ROOM SPEAKING WITH PATIENT. ADVISED THAT PATIENT WOULD LIKE TO SIGN OUT AMA.
--- NOTE | 2017-07-25 10:53 | NUR ---
PATIENT STATES SHE WANTS TO LEAVE AND WOULD LIKE TO SIGN OUT.
--- NOTE | 2017-07-25 11:04 | NUR ---
SPOKE WITH THE KATHY RAGRDING PATIENT AMA AND PLANNING ON WALKING TO HIS VEHICHLE. CARLOS STATED HER BROTHER COULD COME BUT IT WILL BE A WHILE. SPOKE WITH PATIENT REGARDING THIS AND STATES HE IS WALKING, NOT WAITING ON NO ONE AND HE ALSO REFUSES TAXI SERVICE.
--- NOTE | 2017-07-25 11:11 | NUR ---
ADVISED DR. OMALLEY OF PATIENT LEAVING FLOOR AMA
--- NOTE | 2017-07-25 11:13 | NUR ---
PATIENT SIGNED OUT AMA. AMBULATED OFF FLOOR
== END 2017-07-25 11:29 | disposition left against medical advice (07) | DRG 70 ==
LOC: ED 00:31 → EDHOLD 03:52 → 5E 03:58
PROVIDERS: Emergency Medicine Emergency Medical Services; ADMIT Internal Medicine
DX: G93.41 Metabolic encephalopathy (principal); N17.0 Acute kidney failure with tubular necrosis; L03.115 Cellulitis of right lower limb; E11.22 Type 2 diabetes mellitus with diabetic chronic kidney disease; F03.90 Unspecified dementia, unspecified severity, without behavioral disturbance, psychotic disturbance, mood disturbance, and anxiety; Z79.4 Long term (current) use of insulin; J44.9 Chronic obstructive pulmonary disease, unspecified; N18.3 Chronic kidney disease, stage 3 (moderate); L97.509 Non-pressure chronic ulcer of other part of unspecified foot with unspecified severity; N40.0 Benign prostatic hyperplasia without lower urinary tract symptoms; G89.29 Other chronic pain; E86.0 Dehydration; E78.2 Mixed hyperlipidemia; D50.9 Iron deficiency anemia, unspecified; R41.0 Disorientation, unspecified; I12.9 Hypertensive chronic kidney disease with stage 1 through stage 4 chronic kidney disease, or unspecified chronic kidney disease; Z79.899 Other long term (current) drug therapy; Z81.2 Family history of tobacco abuse and dependence; Z84.89 Family history of other specified conditions; Z53.21 Procedure and treatment not carried out due to patient leaving prior to being seen by health care provider

== ENCOUNTER → 2017-07-28 | Outpatient (CLI) | payer MEDICARE | END | disposition home or self-care (01) | LOC: WOUNDCARE 11:20 | DX: E11.622 Type 2 diabetes mellitus with other skin ulcer (principal); L97.211 Non-pressure chronic ulcer of right calf limited to breakdown of skin; I70.213 Atherosclerosis of native arteries of extremities with intermittent claudication, bilateral legs; J44.9 Chronic obstructive pulmonary disease, unspecified; E11.22 Type 2 diabetes mellitus with diabetic chronic kidney disease; I12.9 Hypertensive chronic kidney disease with stage 1 through stage 4 chronic kidney disease, or unspecified chronic kidney disease; N18.9 Chronic kidney disease, unspecified; F03.90 Unspecified dementia, unspecified severity, without behavioral disturbance, psychotic disturbance, mood disturbance, and anxiety; E78.5 Hyperlipidemia, unspecified ==

== ENCOUNTER → 2017-07-30 | Outpatient (CLI) | payer MEDICARE ==
[~2017-07-30] MED LIST changes: +NORCO 5-325 TA1 EACH PO
== END | disposition home or self-care (01) ==
LOC: US 10:00
DX: I70.213 Atherosclerosis of native arteries of extremities with intermittent claudication, bilateral legs (principal); L97.211 Non-pressure chronic ulcer of right calf limited to breakdown of skin

== ENCOUNTER 2017-08-03 13:16 | Inpatient (IN) | payer MEDICARE ==
[~2017-08-03] VITALS: Ht 182.8 cm; Wt 79.5 kg
[~2017-08-03 13:16] MED LIST changes: -NORCO 5-325 TA1 EACH PO
[2017-08-03 13:23] VITALS: BP 103/57
--- NOTE | 2017-08-03 13:31 | NUR ---
PATIENTS DENYING ANY IV ACCESS AT THIS TIME.
--- NOTE | 2017-08-03 13:31 | NUR ---
PATIENT DENIES TO GETTING FULLY UNDRESSED. STATES THAT HE WILL WEAR THE GOWN FROM THE WAIST UP.
[2017-08-03 14:01] LABS: BASO % 0.3 % (0.0-1.0); EOS % 0.1 % (1.0-4.0); HEMATOCRIT 43.5 % (42.0-52.0); LYMPH # 1.6 10*3/uL (1.3-4.4); LYMPH % 11.7 % (27.0-41.0); MEAN CELL VOLUME 89.3 fl (80.0-94.0); MEAN CORPUSCULAR HGB 30.8 pg (27.0-31.0); MEAN CORPUSCULAR HGB CONC 34.5 g/dl (33.0-37.0); MEAN PLATELET VOLUME 10.7 fl (9.6-12.3); MONO # 1.2 10*3/uL (0.1-1.0); MONO % 8.8 % (3.0-9.0); NEUT # 10.9 10*3/uL (2.3-7.9); NEUT % 78.6 % (47.0-73.0); PLATELET COUNT AUTOMATED 253 10*3/uL (130-400); RED BLOOD COUNT 4.87 10*6/uL (4.50-5.90); RED CELL DISTRI WIDTH 13.2 % (0-14.5); WHITE BLOOD COUNT 13.8 10*3/uL (4.8-10.8)
[2017-08-03 14:17] LABS: ABG BASE EXCESS 2.8 mmol/L (-2.0-2.0); ABG O2 SATURATION 96.1 % (95-97); ARTERIAL BLOOD GAS PCO2 31.7 mmHg (35-45); ARTERIAL BLOOD GAS PH 7.506 (7.35-7.45); ARTERIAL BLOOD GAS PO2 64.9 mmHg (80-90)
[2017-08-03 14:18] LABS: ALBUMIN 3.2 gm/dl (3.1-4.5); ALKALINE PHOSPHATASE 168 U/L (45-117); BUN 40 mg/dl (7-24); CHLORIDE 100 mmol/L (98-107); CREATININE 2.06 mg/dL (0.70-1.30); SGOT/AST 10 IU/L (3-35); SGPT/ALT 19 U/L (12-78); SODIUM 137 mmol/L (136-145); TOTAL PROTEIN 6.8 gm/dL (6.4-8.2)
[2017-08-03 14:23] LABS: TROPONIN I < 0.015 ng/ml (<0.045)
--- NOTE | 2017-08-03 14:25 | NUR ---
PATIENTS PULSE OX DOCUMENTED 89% ON ROOM AIR. PATIENT PLACED ONTO 2L AT THIS TIME NC. INCREASED 2L TO 4L AND PATIENT PULSE OX 98% NC.
[2017-08-03 14:55] VITALS: BP 123/59
--- NOTE | 2017-08-03 15:13 | NUR ---
REPORT GIVEN TO MARCELLE GUZMAN AT THIS TIME.
--- NOTE | 2017-08-03 15:26 | NUR ---
PATIENT TAKEN TO 5TH FLOOR AT THIS TIME BY MELISA CROSS.
[2017-08-03 15:30] VITALS: BP 150/60
--- NOTE | 2017-08-03 15:30 | NUR ---
A 81, admitted to , under the services of VIOLETA Lowe DO with a diagnosis of HYPOXIA. DEHYDRATION. Chief complaint is DIZZINESS. FALL. Patient arrived via bed from ER. Monitor applied. Initial assessment completed. Vital signs taken and recorded. VIOLETA LOWE DO notified of admission to the unit. Orders received. See assessment for past medical history, medications and allergies. Patient and/or family oriented to unit. [facility] Clothing/patient valuable form completed. SHANTI PATTERSON
[2017-08-03 20:00] VITALS: BP 154/62
--- NOTE | 2017-08-03 20:00 | NUR ---
ASSUMED CARE OF PATIENT. ASSESSMENT COMPLETE. RESTING IN BED. NO VOICED COMPLAINTS. CALL LIGHT IN REACH. WILL CONTINUE TO MONITOR.
[2017-08-03 22:22] LABS: BILIRUBIN 1+ (NEGATIVE); BLOOD NEGATIVE (NEGATIVE); CLARITY SL CLOUDY (CLEAR); COLOR YELLOW (YELLOW); GLUCOSE 3+ (NEGATIVE); KETONE 1+ (NEGATIVE); LEUKO ESTERASE NEGATIVE (NEGATIVE); NITRITE NEGATIVE (NEGATIVE); UROBILINOGEN 0.2 E.U./dl (0.2-1.0)
[2017-08-03 22:38] LABS: BACTERIA TRACE
[2017-08-04] VITALS: BP 148/51
--- NOTE | 2017-08-04 00:36 | NUR ---
CALLED AND SPOKE TO DR RESENDIZ REGARDING PT C/O PAIN "ALL OVER" AND YELLING AT STAFF STATING "THIS TYLENOL DIDNT DO ANYTHING AND I WANT SOMETHING IN MY IV" DR RESENDIZ STATES HE WILL LOOK AT HIS CHART.
--- NOTE | 2017-08-04 01:23 | NUR ---
MEDICATED WITH PRN MORPHINE FOR C/O BACK PAIN. RATES 04/10.
[2017-08-04 06:33] LABS: BASO % 0.2 % (0.0-1.0); EOS % 0.2 % (1.0-4.0); LYMPH # 1.3 10*3/uL (1.3-4.4); LYMPH % 15.1 % (27.0-41.0); MEAN CELL VOLUME 90.9 fl (80.0-94.0); MEAN CORPUSCULAR HGB 30.6 pg (27.0-31.0); MEAN CORPUSCULAR HGB CONC 33.7 g/dl (33.0-37.0); MEAN PLATELET VOLUME 11.4 fl (9.6-12.3); MONO # 0.6 10*3/uL (0.1-1.0); NEUT # 6.8 10*3/uL (2.3-7.9); RED BLOOD COUNT 4.05 10*6/uL (4.50-5.90); RED CELL DISTRI WIDTH 13.1 % (0-14.5); WHITE BLOOD COUNT 8.8 10*3/uL (4.8-10.8)
[2017-08-04 06:38] LABS: HEMATOCRIT 36.8 % (42.0-52.0); HEMOGLOBIN 12.4 g/dl (14.0-18.0); PLATELET COUNT AUTOMATED 173 10*3/uL (130-400)
[2017-08-04 07:04] LABS: ALBUMIN 2.6 gm/dl (3.1-4.5); ALKALINE PHOSPHATASE 126 U/L (45-117); BUN 37 mg/dl (7-24); CHLORIDE 100 mmol/L (98-107); CREATININE 1.36 mg/dL (0.70-1.30); PHOSPHOROUS 2.8 mg/dL (2.5-4.9); POTASSIUM 4.2 mmol/L (3.5-5.1); SGOT/AST 13 IU/L (3-35); SGPT/ALT 15 U/L (12-78); SODIUM 135 mmol/L (136-145); TOTAL PROTEIN 5.3 gm/dL (6.4-8.2)
[2017-08-04 08:00] VITALS: BP 138/58
--- NOTE | 2017-08-04 08:45 | NUR ---
PATIENT HAD NIA WRAP TO RIGHT LOWER LEG. RN ASKED PATIENT IF SHE COULD REMOVE THE WRAP TO SEE WHAT WAS UNDERNEATH IT. PATIENT BECAME ANGRY AND SAID THE WRAP CAN NOT BE REMOVED HE HAD FOLLOWED IN THE WOUND CLINIC AND THE WOUND CLINIC DOCTOR SAID IT IS NOT TO BE UNWRAPPED. PATIENT REFUSED TO LET NURSE UNWRAP HIS RIGHT LEG. RAGHU GREENBERG NOTIFIED.
--- NOTE | 2017-08-04 09:00 | NUR ---
Ophthalmic Pathologist in to talk to patient. Patient states lives at home with alone. There are few steps in the home. Physician: thalia rangel Pharmacy: [facility] health services: none Patient's level of ADLs: INDEPENDENT Patient has working utilities: all working DME: crutches, walker, glucometer Follow-up physician's appointment after d/c: will be made by hospitalist nurse director upon discharge Does patient want to access PORTAL?: no Discharge plan discussed with patient, patient lives at home alone, states he is independent in adls and ambulation, drives, patient states he will be going back home when able, discussed with him VNA and he refused any services at this time. VICKI HERNANDEZ
--- NOTE | 2017-08-04 09:40 | NUR ---
AM PO MEDS TAKEN. PATIENT REFUSED HEPARIN INJECTION.
--- NOTE | 2017-08-04 11:26 | NUR ---
Attempted physical therapy evaluation at 1115 but patient was getting ready for bathing with nursing and requesting PT return at a later time.
--- NOTE | 2017-08-04 12:00 | NUR ---
HOME O2 ASSESSMENT. PRE BP: 133/52, HR 74, RR 18, PULSE OX 100% ON ROOM AIR. AMBULATED PATIENT IN HALLWAY, PULSE OX 99%-100% ON ROOM AIR THROUGHOUT ENTIRE WALK. PATIENT APPEARED TO TOLERATE WELL, SAID HE HAD PAIN IN HIS BACK. POST BP: 146/42, HR 77, RR 18, PULSE OX 99%. RN NOTIFIED.
--- NOTE | 2017-08-04 12:46 | NUR ---
MEDICATED PATIENT WITH PRN MORPHINE FOR PAIN IN HIS LOWER BACK WILL REASSESS FOR EFFECTIVENESS
--- NOTE | 2017-08-04 15:49 | NUR ---
MEDICATED WITH TYLENOL FOR BACK PAIN HE RATES A 6.
[2017-08-04 16:00] VITALS: BP 128/56
--- NOTE | 2017-08-04 17:27 | NUR ---
BLOOD SUGAR CRITICAL HIGH ON GLUCOMETER. REPEAT BEDSIDE DONE CONTINUES TO READ CRITICAL HIGH. REFLEX GLUCOSE DONE AND CAME BACK AT 469, COVERED WITH 22 UNITS OF INSULIN.
[2017-08-04 20:00] VITALS: BP 133/50
[2017-08-05] VITALS: BP 138/56
--- NOTE | 2017-08-05 02:49 | NUR ---
PATIENT [id number] SLOWLY WITH MORPHINE 1 MG IV PER ORDER FOR C/O BACK AND PAIN IN HIS FEET. RATED PAIN A 7/10 WITH 10 BEING THE WORST. SEE EMAR REINFORCED USE OF CALL LIGHT.
--- NOTE | 2017-08-05 07:30 | NUR ---
ASSUMED CARE OF PT AT THIS TIME, RESPS EASY AND NONLABORED WITH NO S/S OF DISTRESS CALL LIGHT WITH IN REACH
[2017-08-05 08:00] VITALS: BP 135/62
--- NOTE | 2017-08-05 10:26 | NUR ---
PT REURNED TO FLOOR AFTER HAVING XRAY OF BACK
--- NOTE | 2017-08-05 10:30 | NUR ---
case management visits with patient, patient's doctor had told him he was ready for discharge and patient became angry and refused to leave the hospital, patient stated he signed a paper that stated he didn't have to leave, explained to patient that he did sign the medicare rights paper and if he felt he was being discharged too soon, he could call the number on the paper and file an appeal, he was also educated on if the appeal was found that he was stable enough to be discharged he could be possibly responsible for the bill. patient stated he was unsteady on his feet. case management discussed with him a short term alf for rehab prior to going back home, patient again became angry and stated "I"m not going", again discussed with him VNA to help out at home, again became angry and stated "I"m not going anywhere". Informed his doctor of conversation
[2017-08-05 12:00] VITALS: BP 110/52
[2017-08-05 12:26] LABS: BILIRUBIN NEGATIVE (NEGATIVE); BLOOD NEGATIVE (NEGATIVE); CLARITY CLEAR (CLEAR); COLOR YELLOW (YELLOW); GLUCOSE 3+ (NEGATIVE); KETONE TRACE (NEGATIVE); LEUKO ESTERASE NEGATIVE (NEGATIVE); NITRITE NEGATIVE (NEGATIVE); PH 5.5 (5.0-9.0); UROBILINOGEN 0.2 E.U./dl (0.2-1.0)
[2017-08-05 13:11] LABS: MUCOUS TRACE
--- NOTE | 2017-08-05 13:46 | NUR ---
PHYSICAL THERAPY PAtient evaluated on 5, full evaluation to follow. Continue with PT as per plan of care with fall, left lower back pain and acute debility precautions. Qualifies for SNF but refuses. Home with family support as able- recommend 24/05 and complete home health services. PAtient is moderate complexity via chart review, tests and evaluation: 91957. Thank you for this referral. Kaya Bowman,PT
[2017-08-05] MEDS ORDERED: NORCO 5-325 TA1 EACH PO (14:06)
--- NOTE | 2017-08-05 14:46 | NUR ---
SPOKE WITH PLISSE MACHINE OPERATOR, RECOMMENDED THAT APS BE CONTACTED R/T PT NONCOMPLIANT WITH DM AND MEDICATIONS. PLISSE MACHINE OPERATOR STATES THAT THEY WILL NOTIFY CASE MANAGEMENT
--- NOTE | 2017-08-05 15:28 | NUR ---
NOAH Bone requested I make a report to APS for this patient to look into patients situation at home. Patient was admitted for hypoxia and dehydration. When offered services such as PT and VNA patient refused. Patient was to be discharged to home and became angry stating he was refusing to go home, his back hurt. Xray's came back negative. Family became agressive as well about patient being discharged to home, but tests were negative and patient is refusing services. Called report to APS to assess home situation to assure patient is in safe environment.
[2017-08-05 16:00] VITALS: BP 128/55
--- NOTE | 2017-08-05 17:52 | NUR ---
Discharge instructions reviewed with patient/family. Patient receptive and verbalizes understanding. Follow-up care arranged. Written instructions given to patient/family. HEPLOCK REMOVED AND TELEMETRY ACCOUNTED FOR. MARISOL FOX
== END 2017-08-05 17:52 | disposition home or self-care (01) | DRG 682 ==
LOC: ED 13:16 → EDHOLD 14:41 → 5E 14:41
PROVIDERS: Emergency Medicine; Registered Nurse; ADMIT Internal Medicine
DX: N17.0 Acute kidney failure with tubular necrosis (principal); J96.01 Acute respiratory failure with hypoxia; E44.0 Moderate protein-calorie malnutrition; E87.1 Hypo-osmolality and hyponatremia; N18.3 Chronic kidney disease, stage 3 (moderate); E11.22 Type 2 diabetes mellitus with diabetic chronic kidney disease; J44.9 Chronic obstructive pulmonary disease, unspecified; E86.0 Dehydration; T14.90XA Injury, unspecified, initial encounter; Z68.23 Body mass index [BMI] 23.0-23.9, adult; I12.9 Hypertensive chronic kidney disease with stage 1 through stage 4 chronic kidney disease, or unspecified chronic kidney disease; E78.5 Hyperlipidemia, unspecified; N40.0 Benign prostatic hyperplasia without lower urinary tract symptoms; E83.51 Hypocalcemia; E11.621 Type 2 diabetes mellitus with foot ulcer; L97.509 Non-pressure chronic ulcer of other part of unspecified foot with unspecified severity; Z60.2 Problems related to living alone; F03.90 Unspecified dementia, unspecified severity, without behavioral disturbance, psychotic disturbance, mood disturbance, and anxiety; M54.9 Dorsalgia, unspecified; W18.39XA Other fall on same level, initial encounter; Y93.89 Activity, other specified; Y92.89 Other specified places as the place of occurrence of the external cause; Y99.8 Other external cause status; Z79.4 Long term (current) use of insulin; Z79.899 Other long term (current) drug therapy; Z98.49 Cataract extraction status, unspecified eye; Z84.89 Family history of other specified conditions

== ENCOUNTER 2017-10-20 20:45 | Emergency (ER) | payer MEDICARE ==
[~2017-10-20] VITALS: Wt 68.0 kg
[~2017-10-20 20:45] MED LIST changes: +NORCO 5-325 TA1 EACH PO
[2017-10-20 21:26] LABS: HEMOGLOBIN 13.6 g/dl (14.0-18.0); MEAN CELL VOLUME 98.4 fl (80.0-94.0); MEAN CORPUSCULAR HGB 30.4 pg (27.0-31.0); MEAN CORPUSCULAR HGB CONC 30.9 g/dl (33.0-37.0); PLATELET COUNT AUTOMATED 188 10*3/uL (130-400); RED BLOOD COUNT 4.47 10*6/uL (4.50-5.90); RED CELL DISTRI WIDTH 14.1 % (0-14.5); WHITE BLOOD COUNT 13.8 10*3/uL (4.8-10.8)
[2017-10-20 21:34] LABS: ACT PARTIAL THROMBO TIME 27.3 SECONDS (20.8-31.5)
[2017-10-20 21:43] LABS: CREATININE 3.4 mg/dL (0.70-1.30); POTASSIUM 5.5 mmol/L (3.5-5.1); TOTAL PROTEIN 6.2 gm/dL (6.4-8.2)
[2017-10-20 21:46] LABS: TOTAL CELLS COUNTED 100 #CELLS
[2017-10-20 21:48] LABS: BURR CELLS MODERATE; PLATELET SUFFICIENCY NORMAL (NORMAL)
[2017-10-20 21:57] LABS: TROPONIN I 0.166 ng/ml (<0.045)
[2017-10-20 22:11] LABS: BILIRUBIN 1+ (NEGATIVE); BLOOD NEGATIVE (NEGATIVE); CLARITY CLEAR (CLEAR); COLOR YELLOW (YELLOW); GLUCOSE 3+ (NEGATIVE); KETONE 1+ (NEGATIVE); LEUKO ESTERASE NEGATIVE (NEGATIVE); NITRITE NEGATIVE (NEGATIVE); UROBILINOGEN 0.2 E.U./dl (0.2-1.0)
[2017-10-20 22:20] LABS: BACTERIA TRACE
[2017-10-20 22:21] LABS: EPITHELIAL CELLS 0-2; RBC 0-2 rbc/hpf (0-2); WBC 0-2 wbc/hpf (0-5)
== END 2017-10-20 23:59 | disposition short-term general hospital (02) ==
LOC: ED 20:45
PROVIDERS: Student in an Organized Health Care Education/Training Program
DX: A41.9 Sepsis, unspecified organism (principal); R65.21 Severe sepsis with septic shock; E11.10 Type 2 diabetes mellitus with ketoacidosis without coma; I21.4 Non-ST elevation (NSTEMI) myocardial infarction; E11.22 Type 2 diabetes mellitus with diabetic chronic kidney disease; I12.9 Hypertensive chronic kidney disease with stage 1 through stage 4 chronic kidney disease, or unspecified chronic kidney disease; N18.3 Chronic kidney disease, stage 3 (moderate); N17.9 Acute kidney failure, unspecified; G89.29 Other chronic pain; J44.9 Chronic obstructive pulmonary disease, unspecified; E78.5 Hyperlipidemia, unspecified; E83.51 Hypocalcemia; E87.1 Hypo-osmolality and hyponatremia; E44.0 Moderate protein-calorie malnutrition; Z79.899 Other long term (current) drug therapy

== ENCOUNTER 2017-10-30 22:03 | Inpatient (IN) | payer MEDICARE ==
[~2017-10-30] VITALS: Ht 182.9 cm; Wt 74.9 kg
--- NOTE | ~2017-10-30 | CON ---
[place], [place] REPORT OF CONSULTATION NAME: THI GRIDER UNIT #: [id number] ROOM: [facility]- DOCTOR: ADRIEN GRIFFIN ED.D) BIRTHDATE: [birth year] DOS: 10/31/2017 HISTORY OF PRESENT ILLNESS: The patient is an 81-year-old male referred by the hospitalist for competency evaluation. At the present time, this patient is in the intensive care unit at [facility]. The patient states he is . His having several years ago. His son, Keron, was in the room during the interview and he also has a daughter. He has two children who are . This patient was recently at the [facility] and was sent home where he quickly decompensated. He does live alone in [place], [place]. His medical history is pertinent for dementia, BPH, foot ulcer, COPD, chronic kidney disease, diabetes mellitus and hypertension, myocardial infarction, and vitamin D deficiency. His medications include Lipitor, Cardura, insulin, Zestril, and tamsulosin. This patient was awake, alert and oriented to person and place. He indicated he was at [facility]. He did not know the date. He indicated that it was fall, but had no idea was 's Susan. He apparently lives alone, although son lives in [place], [place] and his daughter lives near the patient. Both the son and the daughter are not good at administering medications or helping with medications, according to the patient's son. The patient himself indicated that he is not very good at giving himself his medications, which is most likely why his blood sugar was so high and he had decompensated so severely. He is clearly not competent to make informed healthcare decisions, although he did fairly well with some questions. He most likely will need care after he leaves the hospital and most likely will need 24-hour care of some type whether he lives in an assisted living or lives with a family member. Again, he is not competent to make informed decisions due to the fact that he has dementia. DIAGNOSIS: Minor neurocognitive disorder--Alzheimer disease. RECOMMENDATIONS: In my opinion, all decision should be made by his two children, although they do not have a power of criminal attorney for healthcare. They are his next of kin. Thank you very much for this consult. ADRIEN GRIFFIN ED.D CM:CONSTR:REPORT OF CONSULTATION 1915 10/31/17 2303 interface
[2017-10-30 22:19] VITALS: BP 117/48
[2017-10-30 23:12] LABS: BASO % 0.2 % (0.0-1.0); EOS % 0.1 % (1.0-4.0); HEMATOCRIT 40.7 % (42.0-52.0); HEMOGLOBIN 12.9 g/dl (14.0-18.0); LYMPH # 0.5 10*3/uL (1.3-4.4); LYMPH % 6.1 % (27.0-41.0); MEAN CELL VOLUME 95.8 fl (80.0-94.0); MEAN CORPUSCULAR HGB 30.4 pg (27.0-31.0); MEAN CORPUSCULAR HGB CONC 31.7 g/dl (33.0-37.0); MEAN PLATELET VOLUME 10.5 fl (9.6-12.3); MONO # 0.4 10*3/uL (0.1-1.0); MONO % 4.7 % (3.0-9.0); NEUT # 7.3 10*3/uL (2.3-7.9); NEUT % 87.7 % (47.0-73.0); PLATELET COUNT AUTOMATED 296 10*3/uL (130-400); RED BLOOD COUNT 4.25 10*6/uL (4.50-5.90); RED CELL DISTRI WIDTH 14.5 % (0-14.5); WHITE BLOOD COUNT 8.3 10*3/uL (4.8-10.8)
[2017-10-30 23:31] LABS: ALBUMIN 2.7 gm/dl (3.1-4.5); ALKALINE PHOSPHATASE 179 U/L (45-117); BUN 33 mg/dl (7-24); CHLORIDE 96 mmol/L (98-107); CREATININE 1.76 mg/dL (0.70-1.30); POTASSIUM 5.5 mmol/L (3.5-5.1); SGOT/AST 9 IU/L (3-35); SGPT/ALT 17 U/L (12-78); SODIUM 137 mmol/L (136-145); TOTAL PROTEIN 6.3 gm/dL (6.4-8.2)
[2017-10-30 23:33] LABS: ACT PARTIAL THROMBO TIME 27.5 SECONDS (19.5-32.1)
[2017-10-30 23:34] LABS: TROPONIN I < 0.015 ng/ml (<0.045)
[2017-10-31] VITALS (9 sets, daily range): BP systolic 108–131; BP diastolic 44–51
[2017-10-31 00:08] LABS: BILIRUBIN 1+ (NEGATIVE); BLOOD TRACE-INTACT (NEGATIVE); CLARITY CLEAR (CLEAR); COLOR YELLOW (YELLOW); GLUCOSE 3+ (NEGATIVE); KETONE 3+ (NEGATIVE); LEUKO ESTERASE NEGATIVE (NEGATIVE); NITRITE NEGATIVE (NEGATIVE); SPECIFIC GRAVITY 1.015 (1.005-1.030); UROBILINOGEN 0.2 E.U./dl (0.2-1.0)
[2017-10-31 00:15] LABS: BACTERIA 2+; EPITHELIAL CELLS 0-2; WBC 0-2 wbc/hpf (0-5)
[2017-10-31] MEDS ORDERED: HUMULIN 70/30 703 M1 IM (03:32)
[2017-10-31] MEDS ORDERED: ZESTRIL2.5 MG PO (03:32)
[2017-10-31 04:43] LABS: BASO % 0.2 % (0.0-1.0); EOS % 0.1 % (1.0-4.0); HEMATOCRIT 36.5 % (42.0-52.0); HEMOGLOBIN 11.8 g/dl (14.0-18.0); LYMPH # 0.5 10*3/uL (1.3-4.4); MEAN CELL VOLUME 93.4 fl (80.0-94.0); MEAN CORPUSCULAR HGB 30.2 pg (27.0-31.0); MEAN CORPUSCULAR HGB CONC 32.3 g/dl (33.0-37.0); MEAN PLATELET VOLUME 10.3 fl (9.6-12.3); MONO # 0.5 10*3/uL (0.1-1.0); MONO % 4.5 % (3.0-9.0); NEUT # 9.5 10*3/uL (2.3-7.9); NEUT % 89.5 % (47.0-73.0); PLATELET COUNT AUTOMATED 314 10*3/uL (130-400); RED BLOOD COUNT 3.91 10*6/uL (4.50-5.90); RED CELL DISTRI WIDTH 14.4 % (0-14.5); WHITE BLOOD COUNT 10.6 10*3/uL (4.8-10.8)
[2017-10-31 04:57] LABS: ACT PARTIAL THROMBO TIME 24.1 SECONDS (19.5-32.1)
[2017-10-31 04:58] LABS: ALBUMIN 2.4 gm/dl (3.1-4.5); CREATININE 1.76 mg/dL (0.70-1.30); TOTAL PROTEIN 5.7 gm/dL (6.4-8.2)
[2017-10-31 04:59] LABS: FREE T4 1.16 ng/dl (0.76-1.46)
[2017-10-31 05:04] LABS: THYROID STIM HORMONE (HS) 1.53 uIU/ml (0.358-4.75)
[2017-10-31 05:05] LABS: POTASSIUM 3.9 mmol/L (3.5-5.1)
[2017-10-31 07:02] LABS: VITAMIN D, 25-HYDROXY 17.6 ng/mL (30-100)
[2017-10-31 10:08] LABS: CREATININE 1.41 mg/dL (0.70-1.30); POTASSIUM 3.4 mmol/L (3.5-5.1)
[2017-10-31 14:21] LABS: BUN 27 mg/dl (7-24); CHLORIDE 113 mmol/L (98-107); CREATININE 1.33 mg/dL (0.70-1.30); POTASSIUM 4.1 mmol/L (3.5-5.1); SODIUM 145 mmol/L (136-145)
[2017-10-31 18:20] LABS: BUN 26 mg/dl (7-24); CHLORIDE 113 mmol/L (98-107); CREATININE 1.34 mg/dL (0.70-1.30); SODIUM 146 mmol/L (136-145)
[2017-11-01] VITALS: BP 97/38
[2017-11-01 04:00] VITALS: BP 109/32
[2017-11-01 08:00] VITALS: BP 105/32
[2017-11-01 08:01] LABS: BASO % 0.3 % (0.0-1.0); EOS % 0.1 % (1.0-4.0); HEMATOCRIT 29.7 % (42.0-52.0); HEMOGLOBIN 9.7 g/dl (14.0-18.0); LYMPH # 1.3 10*3/uL (1.3-4.4); LYMPH % 18.1 % (27.0-41.0); MEAN CORPUSCULAR HGB 30.7 pg (27.0-31.0); MEAN CORPUSCULAR HGB CONC 32.7 g/dl (33.0-37.0); MEAN PLATELET VOLUME 10.8 fl (9.6-12.3); MONO # 0.6 10*3/uL (0.1-1.0); MONO % 7.6 % (3.0-9.0); NEUT # 5.4 10*3/uL (2.3-7.9); NEUT % 73.6 % (47.0-73.0); PLATELET COUNT AUTOMATED 212 10*3/uL (130-400); RED BLOOD COUNT 3.16 10*6/uL (4.50-5.90); RED CELL DISTRI WIDTH 15.1 % (0-14.5); WHITE BLOOD COUNT 7.3 10*3/uL (4.8-10.8)
[2017-11-01 08:11] LABS: CREATININE 1.42 mg/dL (0.70-1.30); POTASSIUM 3.8 mmol/L (3.5-5.1)
[2017-11-01 12:00] VITALS: BP 119/32
[2017-11-01 16:00] VITALS: BP 104/41
[2017-11-01 20:00] VITALS: BP 130/61
[2017-11-02] VITALS: BP 99/51
[2017-11-02 07:09] LABS: BASO % 0.4 % (0.0-1.0); EOS % 0.9 % (1.0-4.0); HEMATOCRIT 32.3 % (42.0-52.0); HEMOGLOBIN 10.4 g/dl (14.0-18.0); LYMPH # 1.1 10*3/uL (1.3-4.4); LYMPH % 24.1 % (27.0-41.0); MEAN CELL VOLUME 95.8 fl (80.0-94.0); MEAN CORPUSCULAR HGB 30.9 pg (27.0-31.0); MEAN CORPUSCULAR HGB CONC 32.2 g/dl (33.0-37.0); MONO # 0.3 10*3/uL (0.1-1.0); NEUT # 3.1 10*3/uL (2.3-7.9); NEUT % 68.4 % (47.0-73.0); PLATELET COUNT AUTOMATED 185 10*3/uL (130-400); RED BLOOD COUNT 3.37 10*6/uL (4.50-5.90); RED CELL DISTRI WIDTH 15.1 % (0-14.5); WHITE BLOOD COUNT 4.5 10*3/uL (4.8-10.8)
[2017-11-02 07:29] LABS: BUN 15 mg/dl (7-24); CHLORIDE 112 mmol/L (98-107); CREATININE 0.88 mg/dL (0.70-1.30); SODIUM 144 mmol/L (136-145)
[2017-11-02 07:30] VITALS: BP 112/60
[2017-11-02 11:30] VITALS: BP 110/60
[2017-11-02 16:00] VITALS: BP 122/35
[2017-11-02 20:00] VITALS: BP 122/35
[2017-11-03] VITALS: BP 120/74
[2017-11-03 07:50] LABS: BASO % 0.5 % (0.0-1.0); HEMATOCRIT 32.6 % (42.0-52.0); HEMOGLOBIN 10.4 g/dl (14.0-18.0); LYMPH # 1.1 10*3/uL (1.3-4.4); MEAN CELL VOLUME 93.9 fl (80.0-94.0); MEAN CORPUSCULAR HGB CONC 31.9 g/dl (33.0-37.0); MEAN PLATELET VOLUME 10.4 fl (9.6-12.3); MONO # 0.3 10*3/uL (0.1-1.0); MONO % 6.6 % (3.0-9.0); NEUT # 2.7 10*3/uL (2.3-7.9); NEUT % 65.7 % (47.0-73.0); PLATELET COUNT AUTOMATED 170 10*3/uL (130-400); RED BLOOD COUNT 3.47 10*6/uL (4.50-5.90); RED CELL DISTRI WIDTH 14.6 % (0-14.5); WHITE BLOOD COUNT 4.1 10*3/uL (4.8-10.8)
[2017-11-03 08:00] VITALS: BP 122/76
[2017-11-03] MEDS ORDERED: CALCIUM CARBON200 MG PO (11:54)
[2017-11-03] MEDS ORDERED: Insulin Lispro, Reco SC (11:54)
[2017-11-03] MEDS ORDERED: AVPAK AZITHROM250 M1 PO (11:54)
[2017-11-03] MEDS ORDERED: PANTOPRAZOLE SO40 MG PO (11:54)
[2017-11-03 12:00] VITALS: BP 121/52
[2017-11-03 16:00] VITALS: BP 117/50
== END 2017-11-03 18:09 | disposition other institution (70) | DRG 637 ==
LOC: ED 22:03 → 4E 10-31 00:45 → EDHOLD 10-31 00:45 → ICCU 10-31 01:00 → 4E 11-01 17:03 → ICCU 11-01 17:03 → 4E 11-01 18:12
PROVIDERS: Emergency Medicine Emergency Medical Services; Hospitalist; Internal Medicine Hospice and Palliative Medicine; Student in an Organized Health Care Education/Training Program
DX: E11.10 Type 2 diabetes mellitus with ketoacidosis without coma (principal); N17.0 Acute kidney failure with tubular necrosis; E43 Unspecified severe protein-calorie malnutrition; T68.XXXA Hypothermia, initial encounter; R65.10 Systemic inflammatory response syndrome (SIRS) of non-infectious origin without acute organ dysfunction; E87.5 Hyperkalemia; D64.9 Anemia, unspecified; E11.65 Type 2 diabetes mellitus with hyperglycemia; J44.9 Chronic obstructive pulmonary disease, unspecified; E11.22 Type 2 diabetes mellitus with diabetic chronic kidney disease; G30.9 Alzheimer's disease, unspecified; F02.80 Dementia in other diseases classified elsewhere, unspecified severity, without behavioral disturbance, psychotic disturbance, mood disturbance, and anxiety; E55.9 Vitamin D deficiency, unspecified; N40.0 Benign prostatic hyperplasia without lower urinary tract symptoms; G89.29 Other chronic pain; N18.3 Chronic kidney disease, stage 3 (moderate); Z60.2 Problems related to living alone; I12.9 Hypertensive chronic kidney disease with stage 1 through stage 4 chronic kidney disease, or unspecified chronic kidney disease; E78.5 Hyperlipidemia, unspecified; I25.2 Old myocardial infarction; Z81.2 Family history of tobacco abuse and dependence; Z79.4 Long term (current) use of insulin; Z79.899 Other long term (current) drug therapy; Z84.89 Family history of other specified conditions; Z98.49 Cataract extraction status, unspecified eye; Z68.22 Body mass index [BMI] 22.0-22.9, adult

== ENCOUNTER 2017-12-12 12:30 | Inpatient (IN) | payer MEDICARE ==
[~2017-12-12] VITALS: Ht 182.8 cm; Wt 72.6 kg
--- NOTE | ~2017-12-12 | CON ---
[place], [place] REPORT OF CONSULTATION [id number] UNIT #: [id number] ROOM: 412 DOCTOR: ADRIEN GRIFFIN ED.D (FELICITA) BIRTHDATE: [birth year] DOS: 12/13/2017 HISTORY OF PRESENT ILLNESS: The patient is an 82-year-old male referred by the hospitalist for competency evaluation. At the present time, he is in the intensive care unit [facility]. He states he is and he has 2 adult children. He presently resides independently here in [place] but is clearly not able to live independently. He was recently in the hospital and I saw him last in 10/31/2017. From there, he went, he went to [facility] and eventually signed himself out and was discharged home several weeks ago. I did speak with his daughter ____ Stanislav extensively today and they are clearly stating that he cannot go home alone. He was not taking his medications whatsoever. His medical history is pertinent for dementia, benign prostatic hypertrophy, foot ulcer, COPD, chronic kidney disease, diabetes mellitus, hypertension, myocardial infarction, and vitamin D deficiency. His medications include Lipitor, Cardura, Zestril, Glucophage, Remeron, omeprazole, potassium chloride, tamsulosin and insulin. He states he is in [facility] and he does know that it is 2017. His short term memory is clearly impaired, although his long-term memory was fairly good. He is clearly not able to understand the risks and benefits of going home alone because he is unable to take his medications. His blood sugar was extremely high when he came in because he was unable to take his own medications. He indicated to me that he could not take his medications without supervision. He does not live with either of his children and therefore needs most likely to be in a long-term care facility of some type or have 24-hour supervision. His daughter and his son are going to meet today and hopefully come up with some type of conclusion and I suggested possibly assisted living. Regardless, this patient is not competent to make informed healthcare decisions because he does not understand the risks and benefits of his behavior. DIAGNOSIS: Minor neurocognitive disorder-Alzheimer disease. RECOMMENDATIONS: In my opinion, his family should make all healthcare decisions because he is not competent to understand the risks and benefits of his decisions. Thank you very much for this consult. [place], [place] REPORT OF CONSULTATION NAME: THI GRIDER UNIT #: [id number] ROOM: [facility] DOCTOR: ADRIEN GRIFFIN ED.D (FELICITA) BIRTHDATE: [birth year] ADRIEN GRIFFIN ED.D CM:CONSTR:REPORT OF CONSULTATION 1654 12/13/17 2134 interface
--- NOTE | ~2017-12-12 | CON ---
[place], [place] REPORT OF CONSULTATION NAME: THI GRIDER UNIT #: [id number] ROOM: 412 DOCTOR: GERBER ORELLANA MD BIRTHDATE: [birth year] DOS: 12/14/2017 CHIEF COMPLAINT: "I don't know when I get to go home." HISTORY OF PRESENT ILLNESS: This is an 82-year-old male who presented to the [facility] with increased nausea and vomiting for the past week. The patient was recently hospitalized at [facility] for similar symptoms and had DKA along with a non-STEMI. He reports that he has had shortness of breath and has not been urinating. From a psychiatric standpoint, the patient has been increasingly confused and has not been able to attend to his ADLs. The patient had been admitted to [facility], but signed himself out. Once at home, he was not attending to his ADLs or eating or taking his medications. Family is very concerned for him and feel that he needs to be placed, so he can have more close supervision. PAST MEDICAL HISTORY: Remarkable for Alzheimer's dementia, benign prostatic hypertrophy, COPD, chronic kidney disease, diabetes, hypertension, myocardial infarction, and vitamin D deficiency. MENTAL STATUS: The patient is alert and oriented to person, place, but not time. Mood does seem to be fairly euthymic. Affect appropriate. No symptoms suggestive of hypomania or sola. No auditory or visual hallucinations. No delusions, no paranoia. He does process slowly at times and his responses tend to be short and simple, at times inappropriate. There is definitely short-term memory impairment. DIAGNOSIS: Alzheimer's dementia. PLAN: I will go ahead and order Exelon patch and do some routine screening examinations to rule out organic factors. GERBER ORELLANA MD CM:CONSTR:REPORT OF CONSULTATION 1019 12/14/17 1034 interface
[2017-12-12 12:30] VITALS: BP 152/81
[~2017-12-12 12:30] MED LIST changes: +AVPAK AZITHROM250 M1 PO; +CALCIUM CARBON200 MG PO; +HUMULIN 70/30 703 M1 SQ; +Insulin Lispro, Reco SC; +PANTOPRAZOLE SO40 MG PO; +ZESTRIL2.5 MG PO
[2017-12-12 12:57] VITALS: BP 152/76
[2017-12-12 13:01] LABS: BILIRUBIN NEGATIVE (NEGATIVE); BLOOD TRACE-LYSED (NEGATIVE); CLARITY SL CLOUDY (CLEAR); COLOR YELLOW (YELLOW); GLUCOSE 3+ (NEGATIVE); KETONE 3+ (NEGATIVE); LEUKO ESTERASE NEGATIVE (NEGATIVE); NITRITE NEGATIVE (NEGATIVE); SPECIFIC GRAVITY 1.015 (1.005-1.030); UROBILINOGEN 0.2 E.U./dl (0.2-1.0)
[2017-12-12 13:06] LABS: BASO % 0.2 % (0.0-1.0); EOS % 0.2 % (1.0-4.0); HEMATOCRIT 42.2 % (42.0-52.0); HEMOGLOBIN 13.6 g/dl (14.0-18.0); LYMPH # 0.9 10*3/uL (1.3-4.4); LYMPH % 7.4 % (27.0-41.0); MEAN CELL VOLUME 92.7 fl (80.0-94.0); MEAN CORPUSCULAR HGB 29.9 pg (27.0-31.0); MEAN CORPUSCULAR HGB CONC 32.2 g/dl (33.0-37.0); MEAN PLATELET VOLUME 11.4 fl (9.6-12.3); MONO # 0.5 10*3/uL (0.1-1.0); MONO % 3.9 % (3.0-9.0); NEUT # 10.3 10*3/uL (2.3-7.9); NEUT % 87.8 % (47.0-73.0); PLATELET COUNT AUTOMATED 202 10*3/uL (130-400); RED BLOOD COUNT 4.55 10*6/uL (4.50-5.90); RED CELL DISTRI WIDTH 14.3 % (0-14.5); WHITE BLOOD COUNT 11.7 10*3/uL (4.8-10.8)
[2017-12-12 13:10] VITALS: BP 142/77
[2017-12-12 13:15] LABS: ACT PARTIAL THROMBO TIME 23.7 SECONDS (20.8-31.5)
[2017-12-12 13:16] LABS: YEAST 3+
[2017-12-12 13:17] LABS: BACTERIA TRACE
[2017-12-12 13:56] VITALS: BP 135/79
[2017-12-12 14:31] LABS: ALBUMIN 3.4 gm/dl (3.1-4.5); ALKALINE PHOSPHATASE 92 U/L (45-117); BUN 28 mg/dl (7-24); CHLORIDE 101 mmol/L (98-107); CREATININE 1.36 mg/dL (0.70-1.30); SGOT/AST 11 IU/L (3-35); SGPT/ALT 18 U/L (12-78); SODIUM 140 mmol/L (136-145); TOTAL PROTEIN 6.7 gm/dL (6.4-8.2)
[2017-12-12 14:32] LABS: TROPONIN I 0.022 ng/ml (<0.045)
[2017-12-12] MEDS ORDERED: GLUCOPHAGE500 M1 PO (15:19)
[2017-12-12] MEDS ORDERED: POTASSIUM CHLO20 ME3 PO (15:20)
[2017-12-12] MEDS ORDERED: NOVOLOG100 UNIT/1 SQ (15:22)
[2017-12-12] MEDS ORDERED: HUMULIN N100 UNIT/1 SQ (15:23)
[2017-12-12] MEDS ORDERED: MIRTAZAPINE15 M1 PO (15:57)
[2017-12-12 16:00] VITALS: BP 132/57
[2017-12-12] MEDS ORDERED: OMEPRAZOLE D/R20 MG PO (16:02)
[2017-12-12] MEDS ORDERED: LANTUS SOL100 UNIT/1 SC (16:15)
[2017-12-12 17:16] LABS: BUN 23 mg/dl (7-24); CHLORIDE 110 mmol/L (98-107); POTASSIUM 4.3 mmol/L (3.5-5.1); SODIUM 146 mmol/L (136-145)
[2017-12-12 20:00] VITALS: BP 127/64
[2017-12-12 21:31] LABS: BUN 19 mg/dl (7-24); CHLORIDE 112 mmol/L (98-107); CREATININE 0.99 mg/dL (0.70-1.30); POTASSIUM 3.8 mmol/L (3.5-5.1); SODIUM 147 mmol/L (136-145)
[2017-12-13] VITALS: BP 108/49
[2017-12-13 04:00] VITALS: BP 106/47
[2017-12-13 04:27] LABS: BASO % 0.2 % (0.0-1.0); EOS % 0.2 % (1.0-4.0); HEMATOCRIT 37.1 % (42.0-52.0); HEMOGLOBIN 12.2 g/dl (14.0-18.0); LYMPH # 1.2 10*3/uL (1.3-4.4); LYMPH % 11.7 % (27.0-41.0); MEAN CELL VOLUME 92.8 fl (80.0-94.0); MEAN CORPUSCULAR HGB 30.5 pg (27.0-31.0); MEAN CORPUSCULAR HGB CONC 32.9 g/dl (33.0-37.0); MONO # 0.8 10*3/uL (0.1-1.0); MONO % 7.3 % (3.0-9.0); NEUT # 8.2 10*3/uL (2.3-7.9); NEUT % 80.2 % (47.0-73.0); PLATELET COUNT AUTOMATED 151 10*3/uL (130-400); RED CELL DISTRI WIDTH 14.4 % (0-14.5); WHITE BLOOD COUNT 10.3 10*3/uL (4.8-10.8)
[2017-12-13 04:49] LABS: ALBUMIN 2.6 gm/dl (3.1-4.5); ALKALINE PHOSPHATASE 70 U/L (45-117); BUN 15 mg/dl (7-24); CHLORIDE 110 mmol/L (98-107); CREATININE 0.91 mg/dL (0.70-1.30); PHOSPHOROUS 2.3 mg/dL (2.5-4.9); POTASSIUM 3.9 mmol/L (3.5-5.1); SGOT/AST 14 IU/L (3-35); SGPT/ALT 14 U/L (12-78); SODIUM 144 mmol/L (136-145); TOTAL PROTEIN 5.3 gm/dL (6.4-8.2)
[2017-12-13 08:00] VITALS: BP 138/71
[2017-12-13 12:00] VITALS: BP 104/52
[2017-12-13 16:00] VITALS: BP 97/60
[2017-12-13 20:00] VITALS: BP 121/71
[2017-12-14] VITALS: BP 126/70
[2017-12-14 06:11] LABS: BASO % 0.3 % (0.0-1.0); EOS # 0.1 10*3/uL (0.0-0.4); EOS % 1.4 % (1.0-4.0); HEMATOCRIT 38.9 % (42.0-52.0); HEMOGLOBIN 12.8 g/dl (14.0-18.0); LYMPH % 28.7 % (27.0-41.0); MEAN CELL VOLUME 92.6 fl (80.0-94.0); MEAN CORPUSCULAR HGB 30.5 pg (27.0-31.0); MEAN CORPUSCULAR HGB CONC 32.9 g/dl (33.0-37.0); MEAN PLATELET VOLUME 11.2 fl (9.6-12.3); MONO # 0.4 10*3/uL (0.1-1.0); MONO % 6.2 % (3.0-9.0); NEUT # 4.5 10*3/uL (2.3-7.9); NEUT % 63.3 % (47.0-73.0); PLATELET COUNT AUTOMATED 129 10*3/uL (130-400); RED CELL DISTRI WIDTH 14.5 % (0-14.5); WHITE BLOOD COUNT 7.1 10*3/uL (4.8-10.8)
[2017-12-14 06:33] LABS: ALBUMIN 2.6 gm/dl (3.1-4.5); ALKALINE PHOSPHATASE 73 U/L (45-117); BUN 14 mg/dl (7-24); CHLORIDE 107 mmol/L (98-107); PHOSPHOROUS 2.7 mg/dL (2.5-4.9); POTASSIUM 3.7 mmol/L (3.5-5.1); SGOT/AST 19 IU/L (3-35); SGPT/ALT 15 U/L (12-78); SODIUM 140 mmol/L (136-145); TOTAL PROTEIN 5.7 gm/dL (6.4-8.2)
[2017-12-14 08:00] VITALS: BP 124/68
[2017-12-14 11:55] LABS: VITAMIN D, 25-HYDROXY 14.3 ng/mL (30-100)
[2017-12-14 12:00] VITALS: BP 126/76
[2017-12-14 16:00] VITALS: BP 120/77
[2017-12-14 20:00] VITALS: BP 127/81
[2017-12-15] VITALS: BP 134/77
[2017-12-15 07:08] LABS: BASO % 0.3 % (0.0-1.0); EOS # 0.1 10*3/uL (0.0-0.4); EOS % 1.7 % (1.0-4.0); HEMATOCRIT 37.4 % (42.0-52.0); HEMOGLOBIN 12.4 g/dl (14.0-18.0); LYMPH # 1.4 10*3/uL (1.3-4.4); LYMPH % 20.5 % (27.0-41.0); MEAN CELL VOLUME 91.2 fl (80.0-94.0); MEAN CORPUSCULAR HGB 30.2 pg (27.0-31.0); MEAN CORPUSCULAR HGB CONC 33.2 g/dl (33.0-37.0); MEAN PLATELET VOLUME 11.4 fl (9.6-12.3); MONO # 0.5 10*3/uL (0.1-1.0); MONO % 7.6 % (3.0-9.0); NEUT # 4.6 10*3/uL (2.3-7.9); NEUT % 69.6 % (47.0-73.0); PLATELET COUNT AUTOMATED 135 10*3/uL (130-400); RED CELL DISTRI WIDTH 14.1 % (0-14.5); WHITE BLOOD COUNT 6.6 10*3/uL (4.8-10.8)
[2017-12-15 07:38] LABS: CHLORIDE 104 mmol/L (98-107); POTASSIUM 3.3 mmol/L (3.5-5.1); SODIUM 139 mmol/L (136-145)
[2017-12-15 07:42] LABS: BUN 17 mg/dl (7-24); CREATININE 0.67 mg/dL (0.70-1.30)
[2017-12-15 08:00] VITALS: BP 136/64
[2017-12-15 12:00] VITALS: BP 116/62
[2017-12-15 16:00] VITALS: BP 123/61
[2017-12-15 20:39] VITALS: BP 135/78
[2017-12-16 00:26] VITALS: BP 131/69
[2017-12-16 05:15] LABS: BUN 18 mg/dl (7-24); CHLORIDE 103 mmol/L (98-107); CREATININE 0.89 mg/dL (0.70-1.30); POTASSIUM 4.1 mmol/L (3.5-5.1); SODIUM 139 mmol/L (136-145)
[2017-12-16 08:00] VITALS: BP 134/68
[2017-12-16 12:00] VITALS: BP 118/60
[2017-12-16] MEDS ORDERED: VITAMIN D-32000 UNIT PO (13:14)
[2017-12-16] MEDS ORDERED: LOPRESSOR25 MG PO (13:14)
[2017-12-16] MEDS ORDERED: CALCIUM CARBON200 MG PO (13:14)
[2017-12-16] MEDS ORDERED: RIVASTIGMINE1 EACH T (13:14)
[2017-12-16] MEDS ORDERED: ASPIRIN ADULT L81 M2 PO (13:14)
[2017-12-16 16:00] VITALS: BP 114/59
== END 2017-12-16 19:02 | disposition other institution (70) | DRG 637 ==
LOC: ED 12:30 → 4E 14:16 → EDHOLD 14:16 → ICCU 14:16 → 4E 12-13 14:39
PROVIDERS: Emergency Medicine; Family Medicine; Internal Medicine; Psychiatry & Neurology Psychiatry
DX: E11.10 Type 2 diabetes mellitus with ketoacidosis without coma (principal); N17.0 Acute kidney failure with tubular necrosis; E44.0 Moderate protein-calorie malnutrition; R65.10 Systemic inflammatory response syndrome (SIRS) of non-infectious origin without acute organ dysfunction; I48.0 Paroxysmal atrial fibrillation; E83.42 Hypomagnesemia; L97.519 Non-pressure chronic ulcer of other part of right foot with unspecified severity; I48.92 Unspecified atrial flutter; E11.22 Type 2 diabetes mellitus with diabetic chronic kidney disease; J44.9 Chronic obstructive pulmonary disease, unspecified; N18.3 Chronic kidney disease, stage 3 (moderate); N40.0 Benign prostatic hyperplasia without lower urinary tract symptoms; D64.9 Anemia, unspecified; D72.810 Lymphocytopenia; I12.9 Hypertensive chronic kidney disease with stage 1 through stage 4 chronic kidney disease, or unspecified chronic kidney disease; E78.5 Hyperlipidemia, unspecified; G89.29 Other chronic pain; E78.00 Pure hypercholesterolemia, unspecified; E11.621 Type 2 diabetes mellitus with foot ulcer; E86.0 Dehydration; G30.9 Alzheimer's disease, unspecified; F02.80 Dementia in other diseases classified elsewhere, unspecified severity, without behavioral disturbance, psychotic disturbance, mood disturbance, and anxiety; E87.6 Hypokalemia; Z79.4 Long term (current) use of insulin; I25.2 Old myocardial infarction; Z98.49 Cataract extraction status, unspecified eye; Z79.899 Other long term (current) drug therapy; Z84.89 Family history of other specified conditions; Z68.21 Body mass index [BMI] 21.0-21.9, adult

== ENCOUNTER 2018-01-02 17:53 | Emergency (ER) | payer MEDICARE ==
[~2018-01-02] VITALS: Ht 180.3 cm; Wt 81.6 kg
[~2018-01-02 17:53] MED LIST changes: +ASPIRIN ADULT L81 M2 PO; +GLUCOPHAGE500 M1 PO; +HUMULIN N100 UNIT/1 SQ; +LANTUS SOL100 UNIT/1 SC; +LOPRESSOR25 MG PO; +MIRTAZAPINE15 M1 PO; +NOVOLOG100 UNIT/1 SQ; +OMEPRAZOLE D/R20 MG PO; +POTASSIUM CHLO20 ME3 PO; +RIVASTIGMINE1 EACH T; +VITAMIN D-32000 UNIT PO
[2018-01-02 19:33] LABS: BILIRUBIN NEGATIVE (NEGATIVE); BLOOD NEGATIVE (NEGATIVE); CLARITY CLEAR (CLEAR); COLOR YELLOW (YELLOW); GLUCOSE 2+ (NEGATIVE); KETONE NEGATIVE (NEGATIVE); LEUKO ESTERASE NEGATIVE (NEGATIVE); NITRITE NEGATIVE (NEGATIVE); SPECIFIC GRAVITY >= 1.030 (1.005-1.030); UROBILINOGEN 0.2 E.U./dl (0.2-1.0)
[2018-01-02 19:40] LABS: BACTERIA TRACE
[2018-01-02 19:56] LABS: BASO % 0.4 % (0.0-1.0); EOS # 0.1 10*3/uL (0.0-0.4); EOS % 2.1 % (1.0-4.0); HEMATOCRIT 34.6 % (42.0-52.0); LYMPH # 1.1 10*3/uL (1.3-4.4); LYMPH % 20.6 % (27.0-41.0); MEAN CELL VOLUME 93.8 fl (80.0-94.0); MEAN CORPUSCULAR HGB 29.8 pg (27.0-31.0); MEAN CORPUSCULAR HGB CONC 31.8 g/dl (33.0-37.0); MEAN PLATELET VOLUME 9.8 fl (9.6-12.3); MONO # 0.5 10*3/uL (0.1-1.0); MONO % 9.4 % (3.0-9.0); NEUT # 3.6 10*3/uL (2.3-7.9); NEUT % 67.3 % (47.0-73.0); PLATELET COUNT AUTOMATED 232 10*3/uL (130-400); RED BLOOD COUNT 3.69 10*6/uL (4.50-5.90); RED CELL DISTRI WIDTH 14.1 % (0-14.5); WHITE BLOOD COUNT 5.3 10*3/uL (4.8-10.8)
[2018-01-02 20:22] LABS: ALBUMIN 2.6 gm/dl (3.1-4.5); ALKALINE PHOSPHATASE 142 U/L (45-117); BUN 20 mg/dl (7-24); CHLORIDE 108 mmol/L (98-107); CREATININE 0.75 mg/dL (0.70-1.30); POTASSIUM 3.8 mmol/L (3.5-5.1); SGOT/AST 34 IU/L (3-35); SGPT/ALT 27 U/L (12-78); SODIUM 143 mmol/L (136-145); TOTAL PROTEIN 6.2 gm/dL (6.4-8.2)
[2018-01-02] MEDS ORDERED: LEVAQUIN750 M1 PO (21:00)
== END 2018-01-02 23:31 | disposition other institution (70) ==
LOC: ED 17:53
PROVIDERS: Nurse Practitioner
DX: J18.1 Lobar pneumonia, unspecified organism (principal); Z98.890 Other specified postprocedural states; Z79.899 Other long term (current) drug therapy; Z79.4 Long term (current) use of insulin; Z79.82 Long term (current) use of aspirin

== ENCOUNTER 2018-02-03 15:49 | Inpatient (IN) | payer MEDICARE ==
[~2018-02-03] VITALS: Ht 182.8 cm; Wt 74.7 kg
--- NOTE | ~2018-02-03 | O ---
[place], [place] OPERATIVE NOTE [id number] UNIT #: [id number] ROOM: 412 DOCTOR: MARLIN JARAMILLO,BONILLA BIRTHDATE: [birth year] DOS: 02/04/2018 INDICATION: The patient has presented with epigastric abdominal pain, nausea, abnormal CT scan of the chest. PROCEDURE: Today's procedure part of investigation is panendoscopy plus esophageal biopsy plus antral biopsy. PREMEDICATION: Versed and Diprivan. SCOPE: Olympus forward-viewing gastroscope Q10 video. REPORT: After putting the patient in left lateral position and application of lubricant to the scope, the scope was introduced and thereafter, under direct visualization, advanced through the length of esophagus. Diffuse esophageal ulcerations from cervical esophagus to distal esophagus was noticed. A biopsy for documentation and diagnosis was obtained. Gastric pouch was entered. Gastritis seen. Antral biopsy was obtained. Duodenal bulb, second and third part within normal limits. The patient extubated, tolerated the procedure well. IMPRESSION: Gastritis, diffuse esophageal ulcer, which could be secondary to reflux, could be secondary to diabetic gastroparesis. PLAN AND DISCUSSION: We are going to keep him on Protonix IV 40 mg b.i.d., sucralfate 2 g slurry 2 hours before meals and at bedtime, Reglan 5 mg before dinner and antireflux elevation of the head of the bed 10 inch all the time and clinical reassessment. FINAL DIAGNOSIS: Diffuse esophageal ulcers. BONILLA ISAAC MD CM:OPRECORD:OPERATIVE NOTE 1635 [id number] BONILLA ISAAC MD 02/05/18 0447 interface
--- NOTE | ~2018-02-03 | CON ---
[place], [place] REPORT OF CONSULTATION NAME: THI GRIDER [facility] #: [id number] UNIT #: [id number] ROOM: 412 DOCTOR: MARLIN JARAMILLOBONILLA BIRTHDATE: [birth year] DOS: 02/04/2018 HISTORY OF PRESENT ILLNESS: This is an 82-year-old patient who has presented with a chief complaint of epigastric distress and nausea amongst his multiple other issues. The patient had to be admitted and undergo investigation. At the time of admission, a panel of basic workup was done for shortness of breath and cough and H. flu panel was unremarkable. Chest x-ray, no acute process was seen. Lactic acid of 4.8 was seen. INR 1.1. His glucose was hyperglycemic at 455 level. His BUN and creatinine were 33 and 1.7. GFR of 45. Liver function test normal, alkaline phosphatase was 123. CBC, white blood cell was 13, H and H of 13 and 43, platelets 319. Urinalysis was unremarkable. Ketones were 1-16, positive. Arterial blood gases pH was 7.35 with a CO2 of 27. Base deficit of -8. Lactic acid on further followup dropped to 4.1. Troponin remained negative. Lipase remained normal. Lactic acid dropped to 2.8. CT scan of the chest with contrast was done, mild diffuse wall thickening of the esophagus was noticed and that is why we got involved and asked for assessment of the esophagus. His H and H remained 12 and 39. PAST MEDICAL HISTORY: Associated with hyperlipidemia, gastritis, hypertension, diabetes mellitus. SOCIAL HISTORY: Nonsmoker, nonalcohol consumer; past smoker however. PAST SURGICAL SPECIFIC: Cataract, right inguinal hernia repair. MEDICATIONS: List was reviewed. ALLERGIES: No known medication. REVIEW OF SYSTEMS: HEENT: Denies double vision, blurred vision. RESPIRATORY: Admits to some shortness of breath and cough. CARDIOVASCULAR: Denies chest pain. DIGESTIVE SYSTEM: Epigastric distress, nausea, and abnormal CT scan of the esophagus. PHYSICAL EXAMINATION: VITAL SIGNS: Remains stable. HEENT: Head normocephalic, nontraumatic. Mouth and buccal mucosa benign. NECK: Supple, no thyromegaly, no cervical lymphadenopathy. HEART: Normal sinus rhythm, no gallop, no murmur. ABDOMEN: Soft. No hepato-organomegaly. Bowel sounds present. No pulsatile mass. EXTREMITIES: No cyanosis, no pedal edema. NEUROLOGIC: Alert and slow orientation. LABORATORY DATA: Labs reviewed, records reviewed. Glucose has been controlled and his comprehensive metabolic panel and electrolytes have remained balanced. The latest chemistry also had glucose about 200. [place], [place] REPORT OF CONSULTATION NAME: THI GRIDER UNIT #: [id number] ROOM: 412 DOCTOR: MARLIN JARAMILLO,BONILLA BIRTHDATE: [birth year] PLAN AND DISCUSSION: We are going to proceed with endoscopic assessment for abnormal CT scan of the esophagus. Other adjunctive diagnoses as outlined in paragraph of past medical, surgical history with diagnoses of chronic obstructive pulmonary, early dementia, diabetes mellitus, hyperlipidemia, hypertension, non-ST elevation myocardial infarction, in paroxysmal atrial fibrillation, has been all noticed. BONILLA ISAAC MD CM:CONSTR:REPORT OF CONSULTATION 1635 02/05/18 0446 interface
[~2018-02-03 15:49] MED LIST changes: +LEVAQUIN750 M1 PO
[2018-02-03 15:50] VITALS: BP 146/63
[2018-02-03 16:45] LABS: HEMATOCRIT 43.6 % (42.0-52.0); HEMOGLOBIN 13.5 g/dl (14.0-18.0); MEAN CELL VOLUME 86.3 fl (80.0-94.0); MEAN CORPUSCULAR HGB 26.7 pg (27.0-31.0); MEAN PLATELET VOLUME 10.6 fl (9.6-12.3); PLATELET COUNT AUTOMATED 319 10*3/uL (130-400); RED BLOOD COUNT 5.05 10*6/uL (4.50-5.90); RED CELL DISTRI WIDTH 15.3 % (0-14.5); WHITE BLOOD COUNT 13.2 10*3/uL (4.8-10.8)
[2018-02-03 16:54] LABS: INTERNATIONAL NORM RATIO 1.1 (2.0-3.5)
[2018-02-03 16:56] VITALS: BP 143/68
[2018-02-03 17:04] LABS: ALBUMIN 3.6 gm/dl (3.1-4.5); ALKALINE PHOSPHATASE 123 U/L (45-117); BUN 33 mg/dl (7-24); CHLORIDE 101 mmol/L (98-107); CREATININE 1.78 mg/dL (0.70-1.30); POTASSIUM 4.5 mmol/L (3.5-5.1); SGOT/AST 9 IU/L (3-35); SGPT/ALT 19 U/L (12-78); SODIUM 138 mmol/L (136-145); TOTAL PROTEIN 7.4 gm/dL (6.4-8.2)
[2018-02-03 17:09] LABS: TROPONIN I < 0.015 ng/ml (<0.045)
[2018-02-03 17:14] LABS: TOTAL CELLS COUNTED 100 #CELLS
[2018-02-03 17:15] LABS: BURR CELLS FEW; PLATELET SUFFICIENCY NORMAL (NORMAL)
[2018-02-03 17:18] LABS: BILIRUBIN NEGATIVE (NEGATIVE); BLOOD NEGATIVE (NEGATIVE); CLARITY CLEAR (CLEAR); COLOR YELLOW (YELLOW); GLUCOSE NEGATIVE (NEGATIVE); KETONE NEGATIVE (NEGATIVE); LEUKO ESTERASE NEGATIVE (NEGATIVE); NITRITE NEGATIVE (NEGATIVE); PH 5.5 (5.0-9.0); SPECIFIC GRAVITY <= 1.005 (1.005-1.030); UROBILINOGEN 0.2 E.U./dl (0.2-1.0)
[2018-02-03 17:23] LABS: BACTERIA TRACE; HYALINE CAST TNTC
[2018-02-03 18:00] VITALS: BP 143/68
[2018-02-03 18:00] LABS: ABG HCO3 15.2 mmol/l (22-26); ABG O2 SATURATION 97.5 % (95-97); ARTERIAL BLOOD GAS PCO2 27.5 mmHg (35-45); ARTERIAL BLOOD GAS PH 7.357 (7.35-7.45)
[2018-02-03 18:01] LABS: ABG BASE EXCESS -8.8 mmol/L (-2.0-2.0)
[2018-02-03 19:58] VITALS: BP 155/65
[2018-02-03 23:12] LABS: CREATININE 1.47 mg/dL (0.70-1.30)
[2018-02-04] VITALS (8 sets, daily range): BP systolic 114–144; BP diastolic 54–86
[2018-02-04 06:57] LABS: BASO % 0.2 % (0.0-1.0); EOS % 0.2 % (1.0-4.0); HEMATOCRIT 39.2 % (42.0-52.0); HEMOGLOBIN 12.3 g/dl (14.0-18.0); LYMPH # 0.9 10*3/uL (1.3-4.4); LYMPH % 7.5 % (27.0-41.0); MEAN CELL VOLUME 85.4 fl (80.0-94.0); MEAN CORPUSCULAR HGB 26.8 pg (27.0-31.0); MEAN CORPUSCULAR HGB CONC 31.4 g/dl (33.0-37.0); MONO # 0.8 10*3/uL (0.1-1.0); MONO % 6.5 % (3.0-9.0); NEUT # 10.4 10*3/uL (2.3-7.9); NEUT % 85.2 % (47.0-73.0); PLATELET COUNT AUTOMATED 243 10*3/uL (130-400); RED BLOOD COUNT 4.59 10*6/uL (4.50-5.90); RED CELL DISTRI WIDTH 15.5 % (0-14.5); WHITE BLOOD COUNT 12.2 10*3/uL (4.8-10.8)
[2018-02-04 07:06] LABS: ALKALINE PHOSPHATASE 95 U/L (45-117); BUN 23 mg/dl (7-24); CHLORIDE 109 mmol/L (98-107); PHOSPHOROUS 2.4 mg/dL (2.5-4.9); SGOT/AST 12 IU/L (3-35); SGPT/ALT 14 U/L (12-78); SODIUM 142 mmol/L (136-145); TOTAL PROTEIN 6.2 gm/dL (6.4-8.2)
[2018-02-04 07:18] LABS: POTASSIUM 3.8 mmol/L (3.5-5.1)
[2018-02-04 07:27] LABS: INTERNATIONAL NORM RATIO 1.1 (2.0-3.5)
[2018-02-04 08:00] LABS: VITAMIN D, 25-HYDROXY 21.3 ng/mL (30-100)
[2018-02-05] VITALS: BP 95/53
[2018-02-05 06:06] LABS: BASO % 0.6 % (0.0-1.0); EOS # 0.1 10*3/uL (0.0-0.4); EOS % 1.3 % (1.0-4.0); HEMATOCRIT 42.9 % (42.0-52.0); HEMOGLOBIN 13.4 g/dl (14.0-18.0); LYMPH # 1.5 10*3/uL (1.3-4.4); LYMPH % 23.4 % (27.0-41.0); MEAN CELL VOLUME 85.3 fl (80.0-94.0); MEAN CORPUSCULAR HGB 26.6 pg (27.0-31.0); MEAN CORPUSCULAR HGB CONC 31.2 g/dl (33.0-37.0); MEAN PLATELET VOLUME 10.2 fl (9.6-12.3); MONO # 0.4 10*3/uL (0.1-1.0); MONO % 6.6 % (3.0-9.0); NEUT # 4.2 10*3/uL (2.3-7.9); NEUT % 67.8 % (47.0-73.0); PLATELET COUNT AUTOMATED 189 10*3/uL (130-400); RED BLOOD COUNT 5.03 10*6/uL (4.50-5.90); RED CELL DISTRI WIDTH 15.6 % (0-14.5); WHITE BLOOD COUNT 6.2 10*3/uL (4.8-10.8)
[2018-02-05 06:19] LABS: BUN 17 mg/dl (7-24); CHLORIDE 110 mmol/L (98-107); CREATININE 0.98 mg/dL (0.70-1.30); POTASSIUM 3.6 mmol/L (3.5-5.1); SODIUM 142 mmol/L (136-145)
[2018-02-05 06:20] LABS: PHOSPHOROUS 2.5 mg/dL (2.5-4.9)
[2018-02-05 08:00] VITALS: BP 105/73
[2018-02-05 12:00] VITALS: BP 124/72
[2018-02-05 16:00] VITALS: BP 130/81
[2018-02-05 20:00] VITALS: BP 133/63
[2018-02-06] VITALS: BP 120/54
[2018-02-06 08:00] VITALS: BP 146/92
[2018-02-06 12:00] VITALS: BP 148/82
[2018-02-06 16:00] VITALS: BP 134/76
[2018-02-06 20:00] VITALS: BP 136/82
[2018-02-07] VITALS: BP 102/55
[2018-02-07 08:00] VITALS: BP 134/61
[2018-02-07 12:00] VITALS: BP 130/72
[2018-02-07 16:00] VITALS: BP 119/57
[2018-02-07 20:00] VITALS: BP 143/67
[2018-02-08] VITALS: BP 118/59
[2018-02-08 06:19] LABS: BASO % 0.5 % (0.0-1.0); EOS # 0.1 10*3/uL (0.0-0.4); EOS % 2.3 % (1.0-4.0); HEMATOCRIT 37.7 % (42.0-52.0); LYMPH # 0.9 10*3/uL (1.3-4.4); LYMPH % 20.9 % (27.0-41.0); MEAN CELL VOLUME 84.2 fl (80.0-94.0); MEAN CORPUSCULAR HGB 26.8 pg (27.0-31.0); MEAN CORPUSCULAR HGB CONC 31.8 g/dl (33.0-37.0); MEAN PLATELET VOLUME 11.5 fl (9.6-12.3); MONO # 0.4 10*3/uL (0.1-1.0); MONO % 9.8 % (3.0-9.0); NEUT # 2.9 10*3/uL (2.3-7.9); NEUT % 66.3 % (47.0-73.0); PLATELET COUNT AUTOMATED 166 10*3/uL (130-400); RED BLOOD COUNT 4.48 10*6/uL (4.50-5.90); RED CELL DISTRI WIDTH 15.5 % (0-14.5); WHITE BLOOD COUNT 4.4 10*3/uL (4.8-10.8)
[2018-02-08 06:40] LABS: CREATININE 0.79 mg/dL (0.70-1.30)
[2018-02-08 08:00] VITALS: BP 140/79
[2018-02-08 12:00] VITALS: BP 115/73
[2018-02-08] MEDS ORDERED: PANTOPRAZOLE SO40 MG PO (14:13)
[2018-02-08] MEDS ORDERED: METOCLOPRAMIDE H5 M1 PO (14:13)
[2018-02-08] MEDS ORDERED: Carafate1 GM/10 ML PO (14:13)
[2018-02-08 16:00] VITALS: BP 114/62
[2018-02-08 20:00] VITALS: BP 128/61
[2018-02-09] VITALS: BP 117/51
[2018-02-09 08:00] VITALS: BP 138/71
== END 2018-02-09 13:15 | disposition other institution (70) | DRG 682 ==
LOC: ED 15:49 → EDHOLD 18:05 → 4E 18:05
PROVIDERS: Emergency Medicine; Internal Medicine; Physician Assistant; Student in an Organized Health Care Education/Training Program
PROC: 0DB68ZX Excision of Stomach, Via Natural or Artificial Opening Endoscopic, Diagnostic (ICD-10-PCS; principal; 2018-02-04)
PROC: 0DB58ZX Excision of Esophagus, Via Natural or Artificial Opening Endoscopic, Diagnostic (ICD-10-PCS; principal; 2018-02-04)
DX: N17.0 Acute kidney failure with tubular necrosis (principal); G93.41 Metabolic encephalopathy; R65.11 Systemic inflammatory response syndrome (SIRS) of non-infectious origin with acute organ dysfunction; E44.0 Moderate protein-calorie malnutrition; E87.2 Acidosis; K22.10 Ulcer of esophagus without bleeding; I48.0 Paroxysmal atrial fibrillation; L03.115 Cellulitis of right lower limb; E11.65 Type 2 diabetes mellitus with hyperglycemia; E83.39 Other disorders of phosphorus metabolism; I48.92 Unspecified atrial flutter; K22.8 Other specified diseases of esophagus; D64.9 Anemia, unspecified; E86.0 Dehydration; D72.810 Lymphocytopenia; J44.9 Chronic obstructive pulmonary disease, unspecified; G89.29 Other chronic pain; E78.5 Hyperlipidemia, unspecified; I10 Essential (primary) hypertension; I25.10 Atherosclerotic heart disease of native coronary artery without angina pectoris; Z87.81 Personal history of (healed) traumatic fracture; N40.0 Benign prostatic hyperplasia without lower urinary tract symptoms; K29.70 Gastritis, unspecified, without bleeding; F03.90 Unspecified dementia, unspecified severity, without behavioral disturbance, psychotic disturbance, mood disturbance, and anxiety; G47.00 Insomnia, unspecified; I87.2 Venous insufficiency (chronic) (peripheral); K21.0 Gastro-esophageal reflux disease with esophagitis; Z79.4 Long term (current) use of insulin; Z79.82 Long term (current) use of aspirin; Z79.899 Other long term (current) drug therapy; Z98.49 Cataract extraction status, unspecified eye; Z68.25 Body mass index [BMI] 25.0-25.9, adult

== ENCOUNTER 2018-02-18 08:05 | Emergency (ER) | payer MEDICARE ==
[~2018-02-18] VITALS: Ht 601.9 cm
[2018-02-18 08:05] VITALS: BP 136/65
[~2018-02-18 08:05] MED LIST changes: +METOCLOPRAMIDE H5 M1 PO
[2018-02-18 09:12] LABS: HEMATOCRIT 39.4 % (42.0-52.0); HEMOGLOBIN 12.2 g/dl (14.0-18.0); MEAN PLATELET VOLUME 11.1 fl (9.6-12.3); PLATELET COUNT AUTOMATED 164 10*3/uL (130-400); RED BLOOD COUNT 4.69 10*6/uL (4.50-5.90); RED CELL DISTRI WIDTH 15.4 % (0-14.5); WHITE BLOOD COUNT 13.8 10*3/uL (4.8-10.8)
[2018-02-18 09:24] LABS: BUN 21 mg/dl (7-24); CHLORIDE 111 mmol/L (98-107); CREATININE 1.37 mg/dL (0.70-1.30); POTASSIUM 5.5 mmol/L (3.5-5.1); SODIUM 143 mmol/L (136-145)
[2018-02-18 09:30] LABS: BILIRUBIN NEGATIVE (NEGATIVE); BLOOD NEGATIVE (NEGATIVE); CLARITY SL CLOUDY (CLEAR); COLOR YELLOW (YELLOW); GLUCOSE 1+ (NEGATIVE); KETONE NEGATIVE (NEGATIVE); LEUKO ESTERASE NEGATIVE (NEGATIVE); NITRITE NEGATIVE (NEGATIVE); PH 7.5 (5.0-9.0); UROBILINOGEN 0.2 E.U./dl (0.2-1.0)
[2018-02-18 09:37] LABS: PLATELET SUFFICIENCY NORMAL (NORMAL); TOTAL CELLS COUNTED 100 #CELLS
[2018-02-18 09:43] LABS: BACTERIA TRACE
== END 2018-02-18 10:15 | disposition left against medical advice (07) ==
LOC: ED 08:05 → EDHOLD 09:48 → ED 09:48
PROVIDERS: Emergency Medicine
DX: E86.0 Dehydration (principal); D72.829 Elevated white blood cell count, unspecified; E11.649 Type 2 diabetes mellitus with hypoglycemia without coma; E87.5 Hyperkalemia; N17.9 Acute kidney failure, unspecified; I25.10 Atherosclerotic heart disease of native coronary artery without angina pectoris; J44.9 Chronic obstructive pulmonary disease, unspecified; G89.29 Other chronic pain; K21.9 Gastro-esophageal reflux disease without esophagitis; I10 Essential (primary) hypertension; E78.5 Hyperlipidemia, unspecified; I25.2 Old myocardial infarction; I48.91 Unspecified atrial fibrillation; I48.92 Unspecified atrial flutter; Z98.890 Other specified postprocedural states; Z98.42 Cataract extraction status, left eye; Z98.41 Cataract extraction status, right eye; Z79.4 Long term (current) use of insulin; Z79.82 Long term (current) use of aspirin

== ENCOUNTER 2018-02-25 22:30 | Emergency (ER) | payer MEDICARE ==
[~2018-02-25] VITALS: Ht 182.8 cm; Wt 84.8 kg
[2018-02-25 23:17] LABS: BASO % 0.5 % (0.0-1.0); EOS # 0.2 10*3/uL (0.0-0.4); EOS % 2.6 % (1.0-4.0); HEMATOCRIT 35.1 % (42.0-52.0); HEMOGLOBIN 10.7 g/dl (14.0-18.0); LYMPH # 1.2 10*3/uL (1.3-4.4); LYMPH % 20.3 % (27.0-41.0); MEAN CELL VOLUME 85.6 fl (80.0-94.0); MEAN CORPUSCULAR HGB 26.1 pg (27.0-31.0); MEAN CORPUSCULAR HGB CONC 30.5 g/dl (33.0-37.0); MEAN PLATELET VOLUME 11.1 fl (9.6-12.3); MONO # 0.6 10*3/uL (0.1-1.0); MONO % 9.1 % (3.0-9.0); NEUT # 4.1 10*3/uL (2.3-7.9); NEUT % 67.3 % (47.0-73.0); PLATELET COUNT AUTOMATED 165 10*3/uL (130-400); RED CELL DISTRI WIDTH 15.3 % (0-14.5); WHITE BLOOD COUNT 6.1 10*3/uL (4.8-10.8)
[2018-02-25 23:33] LABS: ALBUMIN 2.8 gm/dl (3.1-4.5); ALKALINE PHOSPHATASE 144 U/L (45-117); BUN 15 mg/dl (7-24); CHLORIDE 108 mmol/L (98-107); CREATININE 0.91 mg/dL (0.70-1.30); LIPASE 85 U/L (73-393); POTASSIUM 3.4 mmol/L (3.5-5.1); SGOT/AST 22 IU/L (3-35); SGPT/ALT 42 U/L (12-78); SODIUM 142 mmol/L (136-145); TOTAL PROTEIN 5.7 gm/dL (6.4-8.2)
[2018-02-25 23:35] LABS: TROPONIN I < 0.015 ng/ml (<0.045)
[2018-02-26 00:23] LABS: BILIRUBIN NEGATIVE (NEGATIVE); BLOOD TRACE-INTACT (NEGATIVE); CLARITY SL CLOUDY (CLEAR); COLOR YELLOW (YELLOW); GLUCOSE 1+ (NEGATIVE); KETONE NEGATIVE (NEGATIVE); LEUKO ESTERASE NEGATIVE (NEGATIVE); NITRITE NEGATIVE (NEGATIVE); PH 5.5 (5.0-9.0); SPECIFIC GRAVITY >= 1.030 (1.005-1.030); UROBILINOGEN 0.2 E.U./dl (0.2-1.0)
[2018-02-26 00:31] LABS: WBC 0-2 wbc/hpf (0-5)
[2018-02-26 02:07] LABS: URINE AMPHETAMINES < 1000 (1000ng/ml); URINE BARBITURATES < 200 (200ng/ml); URINE BENZODIAZEPINES < 200 (200ng/ml); URINE CANNABINOIDS (THC) < 50 (50ng/ml); URINE COCAINE < 300 (300ng/ml); URINE METHADONE < 300 (300ng/ml); URINE OPIATES < 300 (300ng/ml)
[2018-02-26 02:08] LABS: URINE PHENCYCLIDINE < 25 (25ng/ml)
[2018-02-26] MEDS ORDERED: METOCLOPRAMIDE5 MG PO (02:19)
[2018-02-26] MEDS ORDERED: LEVEMIR FL100 UNIT/1 SQ (02:22)
[2018-02-26] MEDS ORDERED: GLUCAGON EMERGEN1 M1 IJ (02:29)
[2018-02-26] MEDS ORDERED: GLUTOSE 1537.5 GM PO (02:33)
== END 2018-02-26 02:39 | disposition other institution (70) ==
LOC: ED 22:30
PROVIDERS: Physician Assistant
DX: F33.9 Major depressive disorder, recurrent, unspecified (principal); E11.9 Type 2 diabetes mellitus without complications; Z79.4 Long term (current) use of insulin; Z79.899 Other long term (current) drug therapy; Z79.82 Long term (current) use of aspirin; Z98.890 Other specified postprocedural states; Z98.42 Cataract extraction status, left eye; Z98.41 Cataract extraction status, right eye

== ENCOUNTER 2018-02-26 01:42 | Inpatient (IN) | payer MEDICARE ==
[~2018-02-26] VITALS: Ht 182.8 cm; Wt 84.6 kg
--- NOTE | ~2018-02-26 | PR ---
[place], [place] PROGRESS NOTE NAME: THI GRIDER UNIT #: [id number] ROOM: 309 DOCTOR: GERBER ORELLANA MD BIRTHDATE: [birth year] DOS: 02/27/2018 CHIEF COMPLAINT: "I will do I have to do, I just want to get out of here doc." SUMMARY OF THE VISIT: The patient was interviewed as he was resting in bed quietly. He voiced no complaints other than he wants to go home. He states he is sleeping well, eating well and denies any other issues. He was rather dismissive though for the most part. He does have gaps in memory. MENTAL STATUS: He is alert and oriented. Mood does still seem to be depressed with anxious overtones. He endorses pain issues still. He did jump from topic to topic and was somewhat dismissive and eventually did not want to talk much with me. Short term memory has gaps. PLAN: I will increase the Cymbalta at least into a therapeutic range, bringing it from 30 to 60 mg at bedtime while simultaneously increasing the Exelon caps to 3 mg b.i.d. We will attempt to engage in individual and lim milieu activity, returning to the least restrictive environment when psychiatrically stable. GERBER ORELLANA MD CM:PNTRANS [phone] GERBER ORELLANA MD 02/27/18 1110 interface
--- NOTE | ~2018-02-26 | WRIGHTHP ---
[place], [place] PATIENT HISTORY AND PHYSICAL EXAM NAME: THI GRIDER [facility] #: [id number] UNIT #: [id number] ROOM: 309 DOCTOR: GERBER ORELLANA MD BIRTHDATE: [birth year] DOS: 02/26/2018 CHIEF COMPLAINT: "I just want to get out of here. I don't need to be here." HISTORY OF PRESENT ILLNESS: This is an 82-year-old white male who is a resident of [facility]. He initially presented to the emergency room at [facility] with a chief complaint of altered mental status and agitation and extreme noncompliance with his care. The patient would not allow the facility or EMS to give any access for IV or give him any glucose. He has not been eating and he has not been compliant with his meds. He has continued to voice that he is very depressed and feels horrible being at the [facility]. He states he is not sleeping or eating well there. He also has significant pain in his feet and the pain and numbness is driving him further crazy. The patient is upset about being on the [facility], stating that he felt that he was tricked and that he was told he was being admitted to the medical floor. His hope was once in the medical floor, he would be able to be discharged back home. PAST MEDICAL HISTORY: Remarkable for benign prostatic hypertrophy, coronary artery disease, chronic pain, COPD, diabetic ketoacidosis, diabetes, GERD, hypertension, hyperlipidemia, anemia, non-ST elevated myocardial infarction, AFib, atrial flutter, stasis dermatitis and vitamin D deficiency. MENTAL STATUS: The patient is alert and oriented to person, place, but not necessarily time. He states he came here from home. Later, he did state that he remembers being at a [facility] briefly. He is rather depressed and angry at the same time. Mood is labile. Affect at times is inappropriate. He does have some confabulation and there are times he is having significant processing difficulty. There are no overt auditory or visual hallucinations. No delusions, no paranoia. Short term memory is poor. DIAGNOSES: Major depression, recurrent and intermittent explosive disorder and Alzheimer dementia. PLAN: I will go ahead and discontinue his Exelon patch because he is refusing the patch. I will instead prescribe Exelon capsules 1.5 mg b.i.d. I have prescribed Depakote 250 mg t.i.d. in an effort to decrease some of his mood lability. I will also add Cymbalta 30 mg at bedtime to combat the depression, to aid sleep, to improve appetite and to help with his chronic bilateral foot pain. We will engage in individual and lim milieu activity, returning to the least restrictive environment when stable. [place], [place] PATIENT HISTORY AND PHYSICAL EXAM NAME: THI GRIDER [place] UNIT #: [id number] ROOM: 309 DOCTOR: GERBER ORELLANA MD BIRTHDATE: [birth year] GERBER ORELLANA MD CM:HISPHYS:PATIENT HISTORY AND PHYSICAL EXAMINATION 1021 1033 GERBER ORELLANA MD 02/26/18 1033 interface
--- NOTE | ~2018-02-26 | PR ---
[place], [place] PROGRESS NOTE NAME: THI GRIDER UNIT #: [id number] ROOM: 309 DOCTOR: GERBER ORELLANA MD BIRTHDATE: [birth year] DOS: 02/28/2018 CHIEF COMPLAINT: "I am okay, do I get to go home soon?" SUMMARY OF THE VISIT: The patient was interviewed as he was resting quietly in bed. He engaged readily in conversation. He remains fixated on wanting to leave the hospital and states that he feels like he is fine and does not need to go back to the skilled nursing. In fact, he states he absolutely hated it there. He reports good sleep and appetite. He reports he is bored in his current living situation and wishes he was able to do more. MENTAL STATUS: He is alert and oriented with time gaps. Mood does seem to be fairly euthymic. Affect appropriate. There is no sola, hypomania or psychosis. For the most part, memory is intact. PLAN: I will go ahead and continue to taper the Exelon capsules upward, moving it from 3 mg twice a day to 4.5 mg twice a day, continue to engage in individual and lim milieu activity as much as possible, returning then to the least restrictive environment when psychiatrically stable. GERBER ORELLANA MD CM:PNTRANS GERBER ORELLANA MD 02/28/18 0932 interface
--- NOTE | ~2018-02-26 | DS ---
[place], [place] DISCHARGE SUMMARY NAME: THI GRIDER [facility] #: [id number] UNIT #: [id number] ROOM: 309 DOCTOR: GERBER ORELLANA MD BIRTHDATE: [birth year] DOS: 03/02/2018 CHIEF COMPLAINT: "I just want to get out of here. I don't need to be here in the hospital." HISTORY OF PRESENT ILLNESS: This is an 82-year-old white male who is a resident of [facility]. The patient initially presented to the Emergency Room at [facility] with a chief complaint of altered mental status and agitation and extreme noncompliance with care. The patient would not allow the facility or EMS to give any access to IV to give him glucose. He has not been eating or been compliant with his medications while at [facility]. He has continued to voice that he is very depressed and feels horrible being at the snf. He has not been sleeping or eating well there. He also has significant pain in his feet with numbness driving him with increasing depression. The patient is upset about being on the U and states he does not need to be here and wanted to be admitted to the medical floor. PAST MEDICAL HISTORY: Remarkable for benign prostatic hypertrophy, coronary artery disease, chronic pain, COPD, diabetic ketoacidosis, diabetes, GERD, hypertension, hyperlipidemia, anemia, non-ST elevated myocardial infarction, AFib, atrial flutter, stasis dermatitis and vitamin D deficiency. The patient's strengths are he is ambulatory and is going into a supportive environment. SUMMARY OF HOSPITAL COURSE: The patient was admitted to the unit where his Exelon patch was discontinued because he was refusing it. Instead he was prescribed Exelon capsules 1.5 b.i.d. and the dose was gradually increased to its maximum of 6 mg b.i.d. He was also prescribed Depakote 250 mg 3 times daily in an order to control his mood lability. This was gradually then changed to 250 mg twice daily and 500 mg at bedtime. Cymbalta was utilized as an antidepressant to combat depression, aid sleep and appetite as well as help pain. Cymbalta was started at 30 mg a day and increased to its maximum dose to 60 mg a day. With this combination of medication, the patient improved greatly. Sleep and appetite normalized. His pain dissipated. He was voicing positive plans for the future. The patient was discharged then back to [facility] on 03/02/2018. MENTAL STATUS AT DISCHARGE: The patient is alert and oriented to person, place, but not necessarily time. Mood is strongly trending towards euthymia. Affect is more appropriate. There is no sola or hypomania. There are no overt auditory or visual hallucinations, delusions or paranoia. Short-term memory is poor, otherwise he is intact. FINAL DIAGNOSES: Major depression, recurrent; impulse control disorder, not otherwise specified; and Alzheimer's dementia. PLAN: The patient is to return to [facility]. His prescriptions have been E-scribed to [facility]. He is medically stable. He is psychiatrically stable and his biopsychosocial needs are going to be adequately met by the staff there as well as myself and my nurse practitioner. [place], [place] DISCHARGE SUMMARY NAME: THI GRIDER UNIT #: [id number] ROOM: 309 DOCTOR: GERBER ORELLANA MD BIRTHDATE: [birth year] GERBER ORELLANA MD CM:DISCHWANDY 1050 1120 GERBER ORELLANA MD 03/02/18 1119 interface
--- NOTE | ~2018-02-26 | CON ---
[place], [place] REPORT OF CONSULTATION NAME[id number] UNIT #: [id number] ROOM: 309 DOCTOR: ADRIEN GRIFFIN ED.D ([place]) BIRTHDATE: [birth year] DOS: 02/28/2018 HISTORY OF PRESENT ILLNESS: The patient is an 82-year-old male referred by Dr. Nuñez for competency evaluation. At the present time, this patient is on the [facility] at [facility]. He is a and has 2 children living and 2 . 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 His medical history is pertinent for benign prostatic hypertrophy, coronary artery disease, chronic pain, COPD, diabetes, myocardial infarction, anemia, atrial fibrillation, vitamin D deficiency, depression and also had mild dementia. His medications include Exelon, Depakote, Cymbalta, glucagon, atorvastatin, aspirin, Lipitor, calcium carbonate, vitamin D3, ____, Cardura, metoprolol, Lopressor, Carafate and insulin. This patient denies any significant substance abuse issues. He was awake, alert and oriented to person and place. He has some difficulty with time, but overall did fairly well. His short term memory appears to be mildly impaired. His long-term memory was fairly good. He is quite depressed, however. This patient states that he had been living at home prior to coming to the hospital, but he was actually in [facility] here in [place]. He became quite agitated and wanted to go home, although they have tried him living at home and he is not able to care for himself due to his insulin. He goes into shock and then they found him on the floor numerous times, brought him into the hospital and he goes to physical rehabilitation. The family is planning on taking him to independent living where they could supervise his medications and they are planning on going to [facility] in [place], [place]. He is clearly not capable of taking care of himself at home because he has had multiple medical crises where he was found unconscious at his home. With that in mind, I did complete competency forms and to be tries to go home, which he is certainly not capable of doing, they should follow up with guardianship. Hopefully, he will agree to go to long-term independent living with supervision. DIAGNOSES: 1. Major depressive disorder, recurrent. 2. Minor neurocognitive disorder -- mild dementia. RECOMMENDATIONS: In my opinion, this patient cannot live independently at home any longer due to the fact he is unable to self-administer his medications. Thank you very much for this consult. [place], [place] REPORT OF CONSULTATION NAME: THI GRIDER UNIT #: [id number] ROOM: 309 DOCTOR: ADRIEN GRIFFIN ED.D ([facility]) BIRTHDATE: [birth year] ADRIEN GRIFFIN ED.D CM:CONSTR:REPORT OF CONSULTATION 1708 03/01/18 0149 interface GERBER NUÑEZ MD
[2018-02-26] MEDS ORDERED: METOCLOPRAMIDE5 MG PO (02:19)
[2018-02-26] MEDS ORDERED: LEVEMIR FL100 UNIT/1 SQ (02:22)
[2018-02-26] MEDS ORDERED: GLUCAGON EMERGEN1 M1 IJ (02:29)
[2018-02-26] MEDS ORDERED: GLUTOSE 1537.5 GM PO (02:33)
[2018-02-26 03:22] VITALS: BP 129/72
[2018-02-26 07:18] LABS: THYROID STIM HORMONE (HS) 6.32 uIU/ml (0.358-4.75)
[2018-02-26 07:57] VITALS: BP 145/69
[2018-02-26 08:05] LABS: VITAMIN D, 25-HYDROXY 21.5 ng/mL (30-100)
[2018-02-26 15:13] LABS: BASO % 0.3 % (0.0-1.0); EOS # 0.1 10*3/uL (0.0-0.4); EOS % 1.9 % (1.0-4.0); HEMOGLOBIN 11.8 g/dl (14.0-18.0); LYMPH # 1.3 10*3/uL (1.3-4.4); LYMPH % 20.3 % (27.0-41.0); MEAN CELL VOLUME 85.9 fl (80.0-94.0); MEAN CORPUSCULAR HGB CONC 30.3 g/dl (33.0-37.0); MONO # 0.5 10*3/uL (0.1-1.0); MONO % 7.7 % (3.0-9.0); NEUT # 4.4 10*3/uL (2.3-7.9); NEUT % 69.5 % (47.0-73.0); PLATELET COUNT AUTOMATED 182 10*3/uL (130-400); RED BLOOD COUNT 4.54 10*6/uL (4.50-5.90); RED CELL DISTRI WIDTH 15.3 % (0-14.5); WHITE BLOOD COUNT 6.4 10*3/uL (4.8-10.8)
[2018-02-26 15:23] LABS: ACT PARTIAL THROMBO TIME 24.8 SECONDS (20.8-31.5)
[2018-02-26 15:30] LABS: ALKALINE PHOSPHATASE 158 U/L (45-117); BUN 14 mg/dl (7-24); CHLORIDE 104 mmol/L (98-107); CREATININE 1.08 mg/dL (0.70-1.30); POTASSIUM 3.8 mmol/L (3.5-5.1); SGOT/AST 16 IU/L (3-35); SGPT/ALT 40 U/L (12-78); SODIUM 138 mmol/L (136-145); TOTAL PROTEIN 6.6 gm/dL (6.4-8.2)
[2018-02-26 15:36] LABS: TROPONIN I < 0.015 ng/ml (<0.045)
[2018-02-26 20:04] VITALS: BP 127/64
[2018-02-27 07:45] VITALS: BP 133/68
[2018-02-27 20:15] VITALS: BP 129/67
[2018-02-28 07:31] VITALS: BP 128/68
[2018-02-28 20:39] VITALS: BP 162/69
[2018-03-01 07:41] VITALS: BP 138/68
[2018-03-01 12:13] LABS: BUN 26 mg/dl (7-24); CHLORIDE 106 mmol/L (98-107); POTASSIUM 4.2 mmol/L (3.5-5.1); SODIUM 139 mmol/L (136-145)
[2018-03-01 20:00] VITALS: BP 125/68
[2018-03-02 07:49] VITALS: BP 136/68
[2018-03-02 09:19] LABS: BASO % 0.5 % (0.0-1.0); EOS # 0.1 10*3/uL (0.0-0.4); EOS % 2.4 % (1.0-4.0); LYMPH # 0.9 10*3/uL (1.3-4.4); LYMPH % 22.5 % (27.0-41.0); MEAN CELL VOLUME 83.9 fl (80.0-94.0); MEAN CORPUSCULAR HGB 25.6 pg (27.0-31.0); MEAN CORPUSCULAR HGB CONC 30.6 g/dl (33.0-37.0); MEAN PLATELET VOLUME 10.8 fl (9.6-12.3); MONO # 0.5 10*3/uL (0.1-1.0); MONO % 12.8 % (3.0-9.0); NEUT # 2.5 10*3/uL (2.3-7.9); NEUT % 61.6 % (47.0-73.0); PLATELET COUNT AUTOMATED 159 10*3/uL (130-400); RED BLOOD COUNT 4.29 10*6/uL (4.50-5.90); RED CELL DISTRI WIDTH 15.7 % (0-14.5); WHITE BLOOD COUNT 4.1 10*3/uL (4.8-10.8)
[2018-03-02 09:33] LABS: ALBUMIN 2.5 gm/dl (3.1-4.5); ALKALINE PHOSPHATASE 118 U/L (45-117); BUN 27 mg/dl (7-24); CHLORIDE 105 mmol/L (98-107); CREATININE 0.89 mg/dL (0.70-1.30); SGOT/AST 12 IU/L (3-35); SGPT/ALT 19 U/L (12-78); SODIUM 141 mmol/L (136-145); TOTAL PROTEIN 5.5 gm/dL (6.4-8.2); VALPROIC ACID (DEPAKENE) 81.5 ug/ml (50-100)
[2018-03-02] MEDS ORDERED: DIVALPROEX SOD250 MG PO (10:44)
[2018-03-02] MEDS ORDERED: DIVALPROEX SOD500 MG PO (10:44)
[2018-03-02] MEDS ORDERED: DULOXETINE HCL60 MG PO (10:44)
[2018-03-02] MEDS ORDERED: RIVASTIGMINE TAR3 M1 PO (10:44)
[2018-03-02] MEDS ORDERED: NAMENDA-5 PO (10:45)
[2018-03-02] MEDS ORDERED: LANTUS SOL100 UNIT/1 SC (12:27)
== END 2018-03-02 19:17 | disposition other institution (70) | DRG 883 ==
LOC: 3N 01:42
PROVIDERS: Emergency Medicine; Family Medicine; Psychiatry & Neurology Psychiatry; Student in an Organized Health Care Education/Training Program
DX: F63.81 Intermittent explosive disorder (principal); E44.0 Moderate protein-calorie malnutrition; E11.65 Type 2 diabetes mellitus with hyperglycemia; E11.649 Type 2 diabetes mellitus with hypoglycemia without coma; I48.0 Paroxysmal atrial fibrillation; E11.8 Type 2 diabetes mellitus with unspecified complications; I48.92 Unspecified atrial flutter; E87.8 Other disorders of electrolyte and fluid balance, not elsewhere classified; F33.9 Major depressive disorder, recurrent, unspecified; K22.10 Ulcer of esophagus without bleeding; F02.81 Dementia in other diseases classified elsewhere, unspecified severity, with behavioral disturbance; Z68.25 Body mass index [BMI] 25.0-25.9, adult; L97.511 Non-pressure chronic ulcer of other part of right foot limited to breakdown of skin; G30.9 Alzheimer's disease, unspecified; E55.9 Vitamin D deficiency, unspecified; F63.9 Impulse disorder, unspecified; R31.29 Other microscopic hematuria; Z91.19 Patient's noncompliance with other medical treatment and regimen; E87.6 Hypokalemia; R80.9 Proteinuria, unspecified; R81 Glycosuria; I10 Essential (primary) hypertension; E78.5 Hyperlipidemia, unspecified; G89.29 Other chronic pain; N40.0 Benign prostatic hyperplasia without lower urinary tract symptoms; J44.9 Chronic obstructive pulmonary disease, unspecified; I25.10 Atherosclerotic heart disease of native coronary artery without angina pectoris; G47.00 Insomnia, unspecified; I87.2 Venous insufficiency (chronic) (peripheral); R91.8 Other nonspecific abnormal finding of lung field; D64.9 Anemia, unspecified; K21.0 Gastro-esophageal reflux disease with esophagitis; R74.8 Abnormal levels of other serum enzymes; R94.6 Abnormal results of thyroid function studies; D72.810 Lymphocytopenia; K22.8 Other specified diseases of esophagus; Z79.4 Long term (current) use of insulin; I25.2 Old myocardial infarction; Z98.49 Cataract extraction status, unspecified eye; Z81.2 Family history of tobacco abuse and dependence; Z84.89 Family history of other specified conditions; Z79.899 Other long term (current) drug therapy; Z79.82 Long term (current) use of aspirin

== ENCOUNTER 2018-05-31 19:31 | Emergency (ER) | payer MEDICARE ==
[~2018-05-31] VITALS: Ht 182.8 cm; Wt 86.2 kg
--- NOTE | ~2018-05-31 | EKG ---
[place], [place] ELECTROCARDIOGRAM REPORT NAME: THI GRIDER UNIT #: [id number] ROOM: DOCTOR: EPIPHANY DRAFT REPORT BIRTHDATE: [birth year] [facility] Test Date: 2018-05-31 Test Time: 19:57:17 Pat Name: THI GRIDER Department: Room: Gender: M Cardiology Clinical Nurse Specialist: : [id number] Requested By: VICENTE TILLMAN Order Number: [id number] Reading MD: Venu Townsend MD Measurements Intervals [place] Rate: 93 P: DE: QRS: -34 QRSD: 91 T: 54 QT: 377 QTc: 469 Interpretive Statements Atrial fibrillation Left axis deviation Anterior infarct, old Electronically Signed On 05-31-2018 20:48:23 PDT by Venu Townsend MD CM:EKGRPT:ELECTROCARDIOGRAM REPORT 56 47 VICENTE IRVING DRAFT REPORT VICENTE TILLMAN DO
[~2018-05-31 19:31] MED LIST changes: +DIVALPROEX SOD250 MG PO; +DIVALPROEX SOD500 MG PO; +DULOXETINE HCL60 MG PO; +GLUCAGON EMERGEN1 M1 IJ; +GLUTOSE 1537.5 GM PO; +LEVEMIR FL100 UNIT/1 SQ; +METOCLOPRAMIDE5 MG PO; +NAMENDA-5 PO; +RIVASTIGMINE TAR3 M1 PO
[2018-05-31 20:07] LABS: BASO % 0.5 % (0.0-1.0); EOS # 0.1 10*3/uL (0.0-0.4); EOS % 2.3 % (1.0-4.0); HEMATOCRIT 40.7 % (42.0-52.0); HEMOGLOBIN 12.6 g/dl (14.0-18.0); LYMPH # 1.4 10*3/uL (1.3-4.4); LYMPH % 24.7 % (27.0-41.0); MEAN CELL VOLUME 85.3 fl (80.0-94.0); MEAN CORPUSCULAR HGB 26.4 pg (27.0-31.0); MEAN PLATELET VOLUME 11.1 fl (9.6-12.3); MONO # 0.5 10*3/uL (0.1-1.0); MONO % 7.9 % (3.0-9.0); NEUT # 3.7 10*3/uL (2.3-7.9); NEUT % 64.4 % (47.0-73.0); PLATELET COUNT AUTOMATED 163 10*3/uL (130-400); RED BLOOD COUNT 4.77 10*6/uL (4.50-5.90); RED CELL DISTRI WIDTH 16.8 % (0-14.5); WHITE BLOOD COUNT 5.7 10*3/uL (4.8-10.8)
[2018-05-31 20:22] LABS: ALBUMIN 2.9 gm/dl (3.1-4.5); ALKALINE PHOSPHATASE 112 U/L (45-117); BUN 19 mg/dl (7-24); CHLORIDE 106 mmol/L (98-107); CREATININE 1.07 mg/dL (0.70-1.30); POTASSIUM 4.4 mmol/L (3.5-5.1); SGOT/AST 35 IU/L (3-35); SGPT/ALT 24 U/L (12-78); SODIUM 140 mmol/L (136-145); TOTAL PROTEIN 6.6 gm/dL (6.4-8.2)
[2018-05-31 20:26] LABS: TROPONIN I < 0.015 ng/ml (<0.045)
== END 2018-06-01 00:26 | disposition home or self-care (01) ==
LOC: ED 19:31
PROVIDERS: Student in an Organized Health Care Education/Training Program
DX: I48.2 Chronic atrial fibrillation (principal); I25.10 Atherosclerotic heart disease of native coronary artery without angina pectoris; G89.29 Other chronic pain; E11.621 Type 2 diabetes mellitus with foot ulcer; J44.9 Chronic obstructive pulmonary disease, unspecified; K21.9 Gastro-esophageal reflux disease without esophagitis; M79.642 Pain in left hand; I10 Essential (primary) hypertension; E78.00 Pure hypercholesterolemia, unspecified; I25.2 Old myocardial infarction; E66.3 Overweight; I48.92 Unspecified atrial flutter; Z68.29 Body mass index [BMI] 29.0-29.9, adult; Z98.890 Other specified postprocedural states; Z79.899 Other long term (current) drug therapy; Z79.82 Long term (current) use of aspirin; Z79.4 Long term (current) use of insulin

== ENCOUNTER 2018-07-05 10:56 | Emergency (ER) | payer MEDICARE ==
[2018-07-05 11:53] LABS: BASO # 0.1 10*3/uL (0.0-0.1); BASO % 0.8 % (0.0-1.0); EOS # 0.1 10*3/uL (0.0-0.4); HEMATOCRIT 43.3 % (42.0-52.0); HEMOGLOBIN 13.7 g/dl (14.0-18.0); LYMPH # 1.8 10*3/uL (1.3-4.4); LYMPH % 25.2 % (27.0-41.0); MEAN CELL VOLUME 86.3 fl (80.0-94.0); MEAN CORPUSCULAR HGB 27.3 pg (27.0-31.0); MEAN CORPUSCULAR HGB CONC 31.6 g/dl (33.0-37.0); MEAN PLATELET VOLUME 10.3 fl (9.6-12.3); MONO # 0.6 10*3/uL (0.1-1.0); MONO % 8.1 % (3.0-9.0); NEUT # 4.5 10*3/uL (2.3-7.9); NEUT % 63.8 % (47.0-73.0); PLATELET COUNT AUTOMATED 199 10*3/uL (130-400); RED BLOOD COUNT 5.02 10*6/uL (4.50-5.90); RED CELL DISTRI WIDTH 16.3 % (0-14.5); WHITE BLOOD COUNT 7.1 10*3/uL (4.8-10.8)
[2018-07-05 12:08] LABS: ALBUMIN 3.1 gm/dl (3.1-4.5); ALKALINE PHOSPHATASE 130 U/L (45-117); BUN 20 mg/dl (7-24); CHLORIDE 104 mmol/L (98-107); CREATININE 0.83 mg/dL (0.70-1.30); POTASSIUM 4.3 mmol/L (3.5-5.1); SGOT/AST 15 IU/L (3-35); SGPT/ALT 23 U/L (12-78); SODIUM 141 mmol/L (136-145)
[2018-07-05] MEDS ORDERED: CLINDAMYCIN HC300 MG PO (12:45)
== END 2018-07-05 12:48 | disposition home or self-care (01) ==
LOC: ED 10:56
PROVIDERS: Nurse Practitioner Family
DX: L03.115 Cellulitis of right lower limb (principal); E11.9 Type 2 diabetes mellitus without complications; Z98.890 Other specified postprocedural states; Z79.899 Other long term (current) drug therapy; Z79.82 Long term (current) use of aspirin; Z79.4 Long term (current) use of insulin